=== PATIENT | male | born 1975 | race Caucasian/White ===

== ENCOUNTER 2024-04-20 09:51 | Inpatient (IN) | payer BC ==
--- NOTE | 2024-04-20 10:26 | ED ---
General Adult HPI - General Chief complaint: Upper Respiratory Infection Stated complaint: Congestion, BLAYNE, weakness Time Seen by Provider: 04/20/24 10:03 Source: patient Mode of arrival: wheelchair Limitations: no limitations - History of Present Illness Initial comments: Dictation was produced using e994 dictation software. please excuse any grammatical, word or spelling errors. Chief Complaint: 48-year-old male with cough chills and shortness of breath History of Present Illness: Patient is a 48-year-old male with history of diabetes and ITP. States that they were on a cruise. While on the cruise he thought he was coming down with sinus infection. States that shortly after he started to become more ill including short of breath with some pleuritic left anterior chest pain. Patient does report constitutional symptoms including fever chills night sweats. at the bedside states that they were just on a [employer] cruise. He did fly to [place] to get to the docking area for the cruise. Patient denies any lower extremity symptoms. Denies any history of DVT or PE The ROS documented in this emergency department record has been reviewed and confirmed by me. Those systems with pertinent positive or negative responses have been documented in the HPI. All other systems are other negative and/or noncontributory. - Related Data Allergies Allergy/AdvReac Type Severity Reaction Status Date / Time No Known Allergies Allergy Verified 04/20/24 09:58 Review of Systems ROS Statement: Those systems with pertinent positive or pertinent negative responses have been documented in the HPI. ROS Other: All systems not noted in ROS Statement are negative. Past Medical History Past Medical History: Diabetes Mellitus Additional Past Medical History / Comment(s): ITP History of Any Multi-Drug Resistant Organisms: None Reported Additional Past Surgical History / Comment(s): cyst from foot, vasectomy Past Psychological History: No Psychological Hx Reported Smoking Status: Never smoker Past Alcohol Use History: None Reported Past Drug Use History: None Reported General Exam - General Exam Comments Initial Comments: PHYSICAL EXAM: General Impression: Alert and oriented x3, not in acute distress HEENT: Normocephalic atraumatic, extra-ocular movements intact, pupils equal and reactive to light bilaterally, mucous membranes moist. Cardiovascular: Heart regular rate and rhythm Chest: Rhonchi to the left lower posterior lung mcdonough Abdomen: abdomen soft, non-tender, non-distended, no organomegaly Musculoskeletal: Pulses present and equal in all extremities, no peripheral edema Motor: no focal deficits noted Neurological: CN II-XII grossly intact, no focal motor or sensory deficits noted Skin: Intact with no visualized rashes Psych: Normal affect and mood Limitations: no limitations Course Vital Signs 04/20/24 04/20/24 04/20/24 09:53 10:30 11:00 Temperature 98.4 F Pulse Rate 112 H 105 H 104 H Respiratory 18 22 28 H Rate Blood Pressure 158/80 157/68 140/70 O2 Sat by Pulse 87 L 92 L 87 L Oximetry 04/20/24 11:30 Temperature Pulse Rate 105 H Respiratory 30 H Rate Blood Pressure 152/73 O2 Sat by Pulse 89 L Oximetry EKG Findings - EKG Comments: EKG Findings:: My EKG interpretation: Ventricular rate 111, sinus tachycardia,. 136, QRS 85, QTc 385. No HI prolongation, no QTC prolongation, no ST or T-wave changes noted. Overall, this EKG is unremarkable Medical Decision Making - Medical Decision Making Was pt. sent in by a medical professional or institution (, PA, SHEET HEATER, urgent care, hospital, or penitentiary...) When possible be specific @ -No Did you speak to anyone other than the patient for history (EMS, parent, family, police, friend...)? What history was obtained from this source @ -No Did you review nursing and triage notes (agree or disagree)? Why? @ -I reviewed and agree with nursing and triage notes Were old charts reviewed (outside hosp., previous admission, EMS record, old EKG, old radiological studies, urgent care reports/EKG's, penitentiary records)? Report findings @ -No old charts were reviewed Differential Diagnosis (chest pain, altered mental status, abdominal pain women, abdominal pain men, vaginal bleeding, musculoskeletal, weakness, fever, dyspnea, syncope, headache, dizziness, GI bleed, back pain, seizure, CVA, palpatations, mental health)? @ -Differential Dyspnea: Coronary syndrome, arrhythmia, tamponade, asthma, COPD, pulmonary embolism, pneumonia, pneumothorax, pulmonary effusion, anaphylaxis, diabetic ketoacidosis, flailed chest, pulmonary contusion, diaphragmatic rupture, anemia, neuromuscular, this is not meant to be an all-inclusive list. EKG interpreted by me (3pts min.). @ -EKG as above X-rays interpreted by me (1pt min.). @ -Chest x-ray shows pneumonia CT interpreted by me (1pt min.). @ -CT angiography of chest shows no saddle pulmonary emboli U/S interpreted by me (1pt. min.). @ -None done What testing was considered but not performed or refused? (CT, X-rays, U/S, labs)? Why? @ -None What meds were considered but not given or refused? Why? @ -None Was smoking cessation discussed for >3mins.? @ -No Were there social determinants of health that impacted care today? How? ([place] elessness, low income, unemployed, alcoholism, drug addiction, transportation, low edu. Level, literacy, decrease access to med. care, group home, rehab)? @ -No Was there de-escalation of care discussed even if they declined (Discuss DNR or withdrawal of care, Hospice)? DNR status @ -No What co-morbidities impacted this encounter? (DM, HTN, Smoking, COPD, CAD, Cancer, CVA, ARF, Chemo, Hep., AIDS, mental health diagnosis, sleep apnea, morbid obesity)? @ -None Was patient admitted / discharged? Hospital course, mention meds given and route, prescriptions, significant lab abnormalities, going to OR and other pertinent info. @ -48-year-old male with respiratory and infectious symptoms. Vital signs upon arrival shows tachycardia 112, hypoxic 87% room air. Patient placed on supplemental oxygen. Patient did have some positive lung auscultatory findings in the left posterior lung mcdonough. No leukocytosis. Coag panel is negative. D-dimer elevated 1.03. Hyponatremic 129 lactic acidosis 2.4. Influenza A positive. Patient lactic acid levels less than 4 and he is not hypotensive. Patient does not meet criteria for severe sepsis. Nonetheless he is given IV fluids antibiotics. Patient will be admitted. Case discussed with hospitalist for admission. Did you discuss the management of the patient with other professionals (professionals i.e. , PA, SHEET HEATER, lab, RT, psych nurse, social media developer, dat instructor, teacher, customer service officer, family independence case manager)? Give summary @ -See above Was critical care preformed (if so, how long)? @ -Yes, 33 minutes for hypoxia Undiagnosed new problem with uncertain prognosis? @ -No Drug Therapy requiring intensive monitoring for toxicity (Heparin, Nitro, Insulin, Cardizem)? @ -No Were any procedures done? @ -No Diagnosis/symptom? Acute, or Chronic, or Acute on Chronic? Uncomplicated (without systemic symptoms) or Complicated (systemic symptoms)? @ -Multilobar pneumonia Side effects of treatment? @ -No Exacerbation, Progression, or Severe Exacerbation? @ -No Poses a threat to life or bodily function? How? (Chest pain, [place], [place], pneumonia, PE, COPD, DKA, ARF, appy, cholecystitis, CVA, Diverticulitis, Homicidal, Suicidal, threat to staff... and all critical care pts) @ -yes - Lab Data Result diagrams: 04/20/24 10:04/20/24 10: Lab Results 04/20/24 04/20/24 04/20/24 Range/Units 10:09 10: 10: WBC 7.9 (3.8-10.6) k/uL RBC 4.79 (4.30-5.90) m/uL Hgb 14.1 (13.0-17.5) gm/dL Hct 41.9 (39.0-53.0) % MCV 87.4 (80.0-100.0) fL MCH 29.4 (25.0-35.0) pg MCHC 33.6 (31.0-37.0) g/dL RDW 12.5 (11.5-15.5) % Plt Count 162 (150-450) k/uL MPV 7.5 Neutrophils % 91 % Lymphocytes % 4 % Monocytes % 4 % Eosinophils % 0 % Basophils % 0 % Neutrophils # 7.2 (1.3-7.7) k/uL Lymphocytes # 0.3 L (1.0-4.8) k/uL Monocytes # 0.3 (0-1.0) k/uL Eosinophils # 0.0 (0-0.7) k/uL Basophils # 0.0 (0-0.2) k/uL PT 12.6 H (10.0-12.5) sec INR 1.2 H (<1.2) APTT 24.5 (22.0-30.0) sec D-Dimer 1.03 H (<0.60) mg/L FEU Sodium (137-145) mmol/L Potassium (3.5-5.1) mmol/L Chloride (98-107) mmol/L Carbon Dioxide (22-30) mmol/L Anion Gap mmol/L BUN (9-20) mg/dL Creatinine (0.66-1.25) mg/dL Est GFR (CKD-EPI)AfAm (>60 ml/min/1.73 sqM) Est GFR (CKD-EPI)NonAf (>60 ml/min/1.73 sqM) Glucose (74-99) mg/dL Plasma Lactic Acid Bertin (0.7-2.0) mmol/L Calcium (8.4-10.2) mg/dL Magnesium (1.6-2.3) mg/dL Total Bilirubin (0.2-1.3) mg/dL AST (17-59) U/L ALT (4-49) U/L Alkaline Phosphatase (38-126) U/L Troponin I (0.000-0.034) ng/mL NT-Pro-B Natriuret Pep pg/mL Total Protein (6.3-8.2) g/dL Albumin (3.5-5.0) g/dL Influenza Type A (PCR) Detected A (Not Detectd) Influenza Type B (PCR) Not Detected (Not Detectd) RSV (PCR) Not Detected (Not Detectd) SARS-CoV-2 (PCR) Not Detected (Not Detectd) 04/20/24 04/20/24 04/20/24 Range/Units 10:26 10:26 10:26 WBC (3.8-10.6) k/uL RBC (4.30-5.90) m/uL Hgb (13.0-17.5) gm/dL Hct (39.0-53.0) % MCV (80.0-100.0) fL MCH (25.0-35.0) pg MCHC (31.0-37.0) g/dL RDW (11.5-15.5) % Plt Count (150-450) k/uL MPV Neutrophils % % Lymphocytes % % Monocytes % % Eosinophils % % Basophils % % Neutrophils # (1.3-7.7) k/uL Lymphocytes # (1.0-4.8) k/uL Monocytes # (0-1.0) k/uL Eosinophils # (0-0.7) k/uL Basophils # (0-0.2) k/uL PT (10.0-12.5) sec INR (<1.2) APTT (22.0-30.0) sec D-Dimer (<0.60) mg/L FEU Sodium 129 L (137-145) mmol/L Potassium 4.1 (3.5-5.1) mmol/L Chloride 94 L (98-107) mmol/L Carbon Dioxide 25 (22-30) mmol/L Anion Gap 10 mmol/L BUN 17 (9-20) mg/dL Creatinine 0.86 (0.66-1.25) mg/dL Est GFR (CKD-EPI)AfAm >90 (>60 ml/min/1.73 sqM) Est GFR (CKD-EPI)NonAf >90 (>60 ml/min/1.73 sqM) Glucose 245 H (74-99) mg/dL Plasma Lactic Acid Bertin 2.4 H* (0.7-2.0) mmol/L Calcium 7.7 L (8.4-10.2) mg/dL Magnesium 2.0 (1.6-2.3) mg/dL Total Bilirubin 3.1 H (0.2-1.3) mg/dL AST 38 (17-59) U/L ALT 28 (4-49) U/L Alkaline Phosphatase 83 (38-126) U/L Troponin I <0.012 (0.000-0.034) ng/mL NT-Pro-B Natriuret Pep 336 pg/mL Total Protein 5.8 L (6.3-8.2) g/dL Albumin 3.2 L (3.5-5.0) g/dL Influenza Type A (PCR) (Not Detectd) Influenza Type B (PCR) (Not Detectd) RSV (PCR) (Not Detectd) SARS-CoV-2 (PCR) (Not Detectd) Disposition Clinical Impression: Pneumonia Disposition: ADMITTED IP TO THIS HOSP Condition: Serious Referrals: Nohemi Bernal DO [Primary Care Provider] - 1-2 days Decision Time: 12:46
[2024-04-20 11:04] LABS: Influenza A Detected (Not Detectd); Influenza B Not Detected (Not Detectd); RSV Not Detected (Not Detectd)
[2024-04-20 11:08] LABS: Basophils % (A) 0 %; Eosinophils % (A) 0 %; HCT 41.9 % (39.0-53.0); HGB 14.1 gm/dL (13.0-17.5); Lymphocytes # (A) 0.3 k/uL (1.0-4.8); Lymphocytes % (A) 4 %; MCH 29.4 pg (25.0-35.0); MCHC 33.6 g/dL (31.0-37.0); MCV 87.4 fL (80.0-100.0); Mean Platelet Volume 7.5; Monocytes # (A) 0.3 k/uL (0-1.0); Monocytes % (A) 4 %; Neutrophils # (A) 7.2 k/uL (1.3-7.7); Neutrophils % (A) 91 %; Platelet Count 162 k/uL (150-450); RBC 4.79 m/uL (4.30-5.90); RDW 12.5 % (11.5-15.5); WBC 7.9 k/uL (3.8-10.6)
--- NOTE | 2024-04-20 11:10 | XR ---
EXAMINATION TYPE: XR chest 2V DATE OF EXAM: 04/20/2024 10:57 AM COMPARISON: None CLINICAL INDICATION: Male, 48 years old with history of hypoxia; [facility] TECHNIQUE: XR chest 2V Frontal and lateral views of the chest. FINDINGS: Lungs/Pleura: Left lower lobe airspace opacities. There is no evidence of pleural effusion, focal con solidation, or pneumothorax. Pulmonary vascularity: Unremarkable. Heart/mediastinum: Cardiomediastinal silhouette is unremarkable. Musculoskeletal: No acute osseous pathology. IMPRESSION: Left lower lobe airspace opacities compatible with pneumonia. [facility], , 04/20/2024 11:08 AM
[2024-04-20 11:14] LABS: INR 1.2 (<1.2); Partial Thromboplastin Time 24.5 sec (22.0-30.0); Prothrombin Time 12.6 sec (10.0-12.5)
[2024-04-20 11:22] LABS: ALT 28 U/L (4-49); AST 38 U/L (17-59); African American GFR (CKD) >90 (>60 ml/min/1.73 sqM); Albumin 3.2 g/dL (3.5-5.0); Alkaline Phosphatase 83 U/L (38-126); Anion Gap 10 mmol/L; Blood Urea Nitrogen 17 mg/dL (9-20); Calcium 7.7 mg/dL (8.4-10.2); Carbon Dioxide 25 mmol/L (22-30); Chloride 94 mmol/L (98-107); Glucose 245 mg/dL (74-99); Non-African American GFR(CKD) >90 (>60 ml/min/1.73 sqM); Potassium 4.1 mmol/L (3.5-5.1); Sodium 129 mmol/L (137-145); Total Bilirubin 3.1 mg/dL (0.2-1.3); Total Protein 5.8 g/dL (6.3-8.2)
[2024-04-20 11:31] LABS: NT-Pro-B-Type Natriuretic Pept 336 pg/mL
[2024-04-20] MEDS ORDERED: PNEUMONIA PROTOCOL UTILIZED 1 EACH MISC PO PRN ×2 (12:41→13:40)
--- NOTE | 2024-04-20 12:47 | CT ---
EXAMINATION TYPE: CT angio chest DATE OF EXAM: 04/20/2024 12:34 PM COMPARISON: Chest radiograph from same day. CLINICAL INDICATION: Male, 48 years old with history of positive D-dimer; Positive D-dimer TECHNIQUE/CONTRAST: CTA scan of the thorax is performed with IV Contrast, patient injected with 100 ml mL of Isovue 370, MIP images are created and reviewed these are created on a separate workstation.. CT DLP: 413.2 mGycm, Automated exposure control for dose reduction was used. FINDINGS: Lungs/Pleura: Extensive airspace consolidation/opacities predominantly in the left lower lobe but als o involving the left upper, right lower, right upper lobes. Airway: Large airways are patent. Heart: Size within normal limits. No significant coronary artery calcifications. Vasculature: There is no evidence for a filling defect within the pulmonary vasculature to suggest ac [place] pulmonary embolism. The pulmonary artery is of normal size. Mediastinum: No gross evidence of adenopathy. Musculoskeletal: Mild disc degeneration changes are present throughout the thoracolumbar spine second meeta to osteophyte formation and facet joint arthropathy. Soft Tissues/lymph nodes: Unremarkable. Lower neck: No significant findings. Upper Abdomen: Spleen is enlarged up to 16.0 cm. IMPRESSION: 1. No evidence of pulmonary embolism. 2. Extensive Multifocal pneumonia. [facility], , 04/20/2024 12:44 PM
[2024-04-20] MEDS: cefTRIAXone IN SWFI 1,000 MG/10 ML SYRINGE IVP STA (13:04)
[2024-04-20] MEDS: AZITHROMYCIN 500 MG in SODIUM CHLORIDE 0.9% 250 ML IVPB STA (13:09)
[2024-04-20] MEDS ORDERED: MAG HYDROX/AL HYDROX/SIMETH 30 ML CUP PO PRN (13:41)
[2024-04-20] MEDS ORDERED: NALOXONE 0.4 MG/ML 1 ML VIAL IV PRN (13:41)
[2024-04-20] MEDS ORDERED: MELATONIN 3 MG TABLET PO PRN (13:41)
[2024-04-20] MEDS ORDERED: BENZOCAINE/MENTHOL LOZENG 1 EACH LOZENGE MUCOUS MEM PRN (13:41)
[2024-04-20] MEDS ORDERED: DOCUSATE 100 MG CAP PO PRN (13:41)
[2024-04-20] MEDS ORDERED: ONDANSETRON 4 MG/2 ML VIAL IVP PRN (13:41)
[2024-04-20] MEDS ORDERED: BENZONATATE 100 MG CAP PO PRN (13:43)
--- NOTE | 2024-04-20 14:01 | P.HPIM ---
History of Present Illness H&P Date: 04/20/24 History of present illness; patient is a 48-year-old gentleman with past medical history significant for diabetes who presented to the ER for cough and not feeling well for the last week. Stated that he recently came back from a [employer] cruise. While on the cruise, patient felt as if he was coming down with upper respiratory tract infection, he was complaining of nasal congestion and bodyaches. Symptoms started on April 13, initially he just felt weak and was having bodyaches. Following that patient started having shortness of breath that was progressive, patient states that he was getting short of breath on minimal exertion. Patient also having worsening lethargy and bodyaches. Paresh ochoa also was complaining of fever or chills at home. Patient stated that they came back to [place] on Saturday and following that he even felt worse. There was no complaint of orthopnea or PND. There is no complaint of nausea, vomiting abdominal pain. Because of worsening shortness of breath, patient decided to come to the ER Initial lab work done in the ER showed WBC 7.9, hemoglobin 14.1, platelet count 162, D-dimer 1.03, sodium 129, potassium 4.1, BUN 17, creatinine 0.86, lactate 2.4, Influenza A detected Influenza B not detected RSV not detected COVID-19 not detected EKG done in the ER showed heart rate of 111 , no ST segment elevation or depression seen, no T-wave inversions seen. Chest x-ray done in the ER showed left lower lobe opacities compatible with pneumonia Patient admitted to internal medicine service REVIEW OF SYSTEMS: CONSTITUTIONAL: As mentioned above HEENT: No recent visual problems or hearing problems. Denied any sore throat. CARDIOVASCULAR: As mentioned above PULMONARY: As mentioned above GASTROINTESTINAL: No diarrhea, no nausea, no vomiting, no abdominal pain. NEUROLOGICAL: No headaches, no weakness, no numbness. HEMATOLOGICAL: Denies any bleeding or petechiae. GENITOURINARY: Denies any burning micturition, frequency, or urgency. MUSCULOSKELETAL/RHEUMATOLOGICAL: Denies any joint pain, swelling, or any muscle pain. ENDOCRINE: Denies any polyuria or polydipsia. The rest of the 14-point review of systems is negative. PHYSICAL EXAMINATION: GENERAL: The patient is alert and oriented x3, toxic looking HEENT: Pupils are round and equally reacting to light. EOMI. No scleral icterus. No conjunctival pallor. Normocephalic, atraumatic. No pharyngeal erythema. No thyromegaly. CARDIOVASCULAR: S1 and S2 present. No murmurs, rubs, or gallops. PULMONARY: Chest is clear to auscultation, no wheezing or crackles. ABDOMEN: Soft, nontender, nondistended, normoactive bowel sounds. No palpable organomegaly. MUSCULOSKELETAL: No joint swelling or deformity. EXTREMITIES: No cyanosis, clubbing, or pedal edema. NEUROLOGICAL: Gross neurological examination did not reveal any focal deficits. SKIN: No rashes. Assessment and plan Sepsis acute influenza A infection Bacterial pneumonia Hyponatremia Diabetes mellitus Monitor vital signs Monitor CBC Monitor CMP Continue telemetry monitoring Ordered blood cultures Ordered sputum cultures Ordered Legionella urine antigen Start IV Rocephin Start azithromycin Ordered IV fluids Consult pulmonary Labs and medication were reviewed.. Continue same treatment. Continue with symptomatic treatment. Resume home medication. Monitor labs and vitals. DVT and GI prophylaxis. Further recommendations as per clinical course of the patient Dictation was produced using [employer] dictation software. please excuse any grammatical, word or spelling errors. Past Medical History Past Medical History: Diabetes Mellitus Additional Past Medical History / Comment(s): ITP History of Any Multi-Drug Resistant Organisms: None Reported Additional Past Surgical History / Comment(s): cyst from foot, vasectomy Past Psychological History: No Psychological Hx Reported Smoking Status: Never smoker Past Alcohol Use History: None Reported Past Drug Use History: None Reported Medications and Allergies Home Medications Medication Instructions Recorded Confirmed Type Semaglutide [Ozempic] 0.5 mg SQ TH 04/20/24 04/20/24 History Allergies Allergy/AdvReac Type Severity Reaction Status Date / Time No Known Allergies Allergy Verified 04/20/24 13:20 Physical Exam Vitals: Vital Signs Temp Pulse Resp BP Pulse Ox 04/20/24 11:30 105 H 30 H 152/73 89 L 04/20/24 11:00 104 H 28 H 140/70 87 L 04/20/24 10:30 105 H 22 157/68 92 L 04/20/24 09:53 98.4 F 112 H 18 158/80 87 L Intake and Output 04/19/24 04/20/24 04/20/24 22:59 06:59 14:59 Other: Weight 90.718 kg Results CBC & Chem 7: 04/20/24 10:26 04/20/24 10: Labs: Abnormal Lab Results - Last 24 Hours (Table) 04/20/24 04/20/24 04/20/24 Range/Units 10: 10: 10: Lymphocytes # 0.3 L (1.0-4.8) k/uL PT 12.6 H (10.0-12.5) sec INR 1.2 H (<1.2) D-Dimer 1.03 H (<0.60) mg/L FEU Sodium (137-145) mmol/L Chloride (98-107) mmol/L Glucose (74-99) mg/dL Plasma Lactic Acid Bertin (0.7-2.0) mmol/L Calcium (8.4-10.2) mg/dL Total Bilirubin (0.2-1.3) mg/dL Total Protein (6.3-8.2) g/dL Albumin (3.5-5.0) g/dL Influenza Type A (PCR) Detected A (Not Detectd) 04/20/24 04/20/24 Range/Units 10: 10: Lymphocytes # (1.0-4.8) k/uL PT (10.0-12.5) sec INR (<1.2) D-Dimer (<0.60) mg/L FEU Sodium 129 L (137-145) mmol/L Chloride 94 L (98-107) mmol/L Glucose 245 H (74-99) mg/dL Plasma Lactic Acid Bertin 2.4 H* (0.7-2.0) mmol/L Calcium 7.7 L (8.4-10.2) mg/dL Total Bilirubin 3.1 H (0.2-1.3) mg/dL Total Protein 5.8 L (6.3-8.2) g/dL Albumin 3.2 L (3.5-5.0) g/dL Influenza Type A (PCR) (Not Detectd)
[2024-04-20] MEDS: ALBUTEROL NEBULIZED 2.5 MG/3 ML INHALATION SCH (15:22)
[2024-04-20] MEDS ORDERED: VANCOMYCIN IV PER PHARMACY 1 EACH MISC MISCELLANE PRN (18:18)
[2024-04-20] MEDS: ENOXAPARIN 40 MG/0.4 ML SYRINGE SQ SCH (18:59)
[2024-04-20] MEDS: VANCOMYCIN 1,500 MG in SODIUM CHLORIDE 0.9% 500 ML 500 ML IVPB ONE (19:38)
[2024-04-20] MEDS: ACETAMINOPHEN TAB 325 MG TAB PO PRN (20:17)
[2024-04-20] MEDS: guaiFENesin 600 MG TABLET.ER PO SCH (20:18)
[2024-04-20] MEDS: methylPREDNISolone SOD SUCCI 40 MG/ML 1 ML VIAL IV SCH (20:18)
--- NOTE | 2024-04-20 23:15 | P.CNPUL ---
History of Present Illness Consult date: 04/20/24 Reason for consult: dyspnea, pneumonia History of present illness: This is a 48-year-old male patient who presented to the emergency department w ith significant respiratory distress. The patient started have a having symptoms of URI approximately 10 days ago. Over the past 4 to 5 days, the patient started having increased cough and congestion and chest tightness and wheezing and he was producing copious amount of respiratory use that was e ssentially collars. Noted the patient was on a cruise and he arrived back to [place] yesterday and due to his overall respiratory and health decompensation, he came into the emergency department today. He was on a [employer] [place]. No nausea. No vomiting. No diarrhea. No abdominal pain. No altered mental status. In the emergency department, the patient was tested positive for influenza A. Rest of the viral screen was negative. He had a white cell count of 7.9 with a hemoglobin 14.1. D-dimer was at 1.03. Platelet count was 862. Sodium is at 129, BUN 17 with a creatinine of 0.6. Lactic acid level was at 2.4. Chest x-ray showed bilateral lower lobe pneumonia with extensive airspace disease and consolidation in the left lung base. The patient also had a CAT scan of the chest that showed extensive consolidation of the lung bases bilaterally left more than right. I saw the patient in the emergency department. He was unable to fully expand his lungs. He was having frequent coughing spells. His troponins were negative. His LFTs were essentially within normal limits. Lactic acid level dropped from 2.4 down to 1.9 with fluids. He was noted to be on oxygen at 4 L and this was having a pulse ox of 86%. I increased the flow up to 5 L and he continued to be hypoxic and following that I placed the patient on Airvo and Airvo is currently running at 30 L with FiO2 of 60% with a pulse ox of of 94%. He was already started on Tamiflu. I covered the patient with a combination of antibiotics including Rocephin Zithromax and I added vancomycin due to concern of staphylococcal pneumonia postviral/influenza A infection. Started on Lovenox for DVT prophylaxis. Started on IV Solu- Medrol. Blood cultures were sent and results are still pending. proBNP level is at 336. 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 Review of Systems Constitutional: Reports fatigue, Reports weakness Eyes: denies as per HPI, denies blurred vision, denies bulging eye, denies decreased vision, denies diplopia, denies discharge, denies dry eye, denies irritation, denies itching, denies pain, denies photophobia, denies loss of peripheral vision, denies loss of vision, denies tunnel vision/blind spots Ears: deny: decreased hearing, ear discharge, earache, tinnitus Ears, nose, mouth and throat: Reports as per HPI Breasts: absent: as per HPI, gynecomastia Cardiovascular: Reports as per HPI, Reports decreased exercise tolerance, Reports dyspnea on exertion Respiratory: Reports congestion, Reports cough, Reports dyspnea, Reports excessive sputum Gastrointestinal: Reports as per HPI Genitourinary: Reports as per HPI Musculoskeletal: Reports as per HPI Musculoskeletal: absent: ankle pain, ankle stiffness, ankle swelling, as per HPI, elbow pain, elbow stiffness, elbow swelling, foot pain, foot stiffness, foot swelling, hand pain, hand stiffness, hand swelling, hip pain, hip stiffness, hip swelling, knee pain, knee stiffness, knee swelling, shoulder pain, shoulder stiffness, shoulder swelling, wrist pain, wrist stiffness, wrist swelling Integumentary: Reports as per HPI Neurological: Reports as per HPI Psychiatric: Reports as per HPI Endocrine: Reports as per HPI Hematologic/Lymphatic: Reports as per HPI Allergic/Immunologic: Reports as per HPI Past Medical History Past Medical History: Diabetes Mellitus Additional Past Medical History / Comment(s): ITP History of Any Multi-Drug Resistant Organisms: None Reported Additional Past Surgical History / Comment(s): cyst from foot, vasectomy Past Psychological History: No Psychological Hx Reported Smoking Status: Never smoker Past Alcohol Use History: None Reported Past Drug Use History: None Reported Medications and Allergies Home Medications Medication Instructions Recorded Confirmed Type Semaglutide [Ozempic] 0.5 mg SQ TH 04/20/24 04/20/24 History Allergies Allergy/AdvReac Type Severity Reaction Status Date / Time No Known Allergies Allergy Verified 04/20/24 13:20 Physical Exam Vitals: Vital Signs Temp Pulse Resp BP Pulse Ox 04/20/24 15:30 99 18 04/20/24 15:24 100 18 94 L 04/20/24 11:30 105 H 30 H 152/73 89 L 04/20/24 11:00 104 H 28 H 140/70 87 L 04/20/24 10:30 105 H 22 157/68 92 L 04/20/24 09:53 98.4 F 112 H 18 158/80 87 L Intake and Output 04/20/24 04/20/24 04/20/24 06:59 14:59 22:59 Other: Weight 90.718 kg The patient appeared well nourished and normally developed. Vital signs as documented. The patient was having shortness of breath even at rest. The patient was having frequent coughing spells specially with inspiratory efforts. Head exam is unremarkable. No scleral icterus or corneal arcus noted. Neck is without jugular venous distension, thyromegaly, or carotid bruits. Carotid upstrokes are brisk bilaterally. Lungs show diminished breath sounds bilateral lung with bibasilar crackles left more than right. Cardiac exam reveals the PMI to be normally sized and situated. Rhythm is regular. First and second heart sounds normal. No murmurs, rubs or gallops. Abdominal exam reveals normal bowel sounds, no masses, no organomegaly and no aortic enlargement. Extremities are nonedematous and both femoral and pedal pulses are normal. Examination of the skin revealed no evidence of significant rashes, suspicious appearing nevi or other concerning lesions. Neurologically, the patient is awake and alert and the patient does not have any focal neurological deficit. Cranial nerves are essentially intact. Results - Laboratory Findings CBC and BMP: 04/20/24 10:26 04/20/24 10:26 PT/INR, D-dimer PT 12.6 sec (10.0-12.5) H 04/20/24 10: INR 1.2 (<1.2) H 04/20/24 10: D-Dimer 1.03 mg/L FEU (<0.60) H 04/20/24 10:26 Abnormal lab findings: Abnormal Labs 04/20/24 04/20/24 04/20/24 10:09 10: 10:26 Lymphocytes # 0.3 L PT 12.6 H INR 1.2 H D-Dimer 1.03 H Sodium Chloride Glucose Plasma Lactic Acid Bertin Calcium Total Bilirubin Total Protein Albumin Influenza Type A (PCR) Detected A 04/20/24 04/20/24 10: 10: Lymphocytes # PT INR D-Dimer Sodium 129 L Chloride 94 L Glucose 245 H Plasma Lactic Acid Bertin 2.4 H* Calcium 7.7 L Total Bilirubin 3.1 H Total Protein 5.8 L Albumin 3.2 L Influenza Type A (PCR) - Diagnostic Findings Chest x-ray: image reviewed CT scan - chest: image reviewed Assessment and Plan Plan: Acute bilateral lower lobe pneumonia with extensive consolidation of of the left lung base. The patient tested positive for influenza A. Symptoms started on 04/13/2024. Highly likely the patient has a bacterial superinfection based on the CAT scan findings Acute hypoxic respiratory failure, currently on Airvo at 30 L with with an FiO2 of 60% Acute influenza A infection, symptoms started on 04/13/2024 and the patient was having essentially symptoms of URI. Shortness of breath secondary to above Fever secondary to above History of diabetes mellitus History of ITP, platelet counts are normal Plan Continue Airvo and titrate oxygen flow to maintain saturation above 90% Obtain sputum Gram stain and culture Check procalcitonin level continue Tamiflu Cover the patient with a combination of Rocephin and Zithromax and vancomycin IV Solu-Medrol 40 mg every 12 hours Blood cultures Lovenox for DVT prophylaxis Albuterol nebulizer treatments 4 times a day Provide incentive spirometer Repeat the chest x-ray with next 24 hours We will continue monitoring this patient's course quite closely. Monitor the blood sugar and cover the patient with insulin sign scale coverage Will follow Time with Patient: Greater than 30
[2024-04-21] MEDS: VANCOMYCIN 1,500 MG in SODIUM CHLORIDE 0.9% 500 ML 500 ML IVPB SCH (04:20)
[2024-04-21 05:47] LABS: Glucose,Whole Blood 321 mg/dL (70-110)
[2024-04-21] MEDS ORDERED: DEXTROSE 50% SYRINGE 50 ML IVP PRN ×2 (06:24)
[2024-04-21 06:58] LABS: African American GFR (CKD) >90 (>60 ml/min/1.73 sqM); Non-African American GFR(CKD) >90 (>60 ml/min/1.73 sqM)
--- NOTE | 2024-04-21 08:22 | XR ---
EXAMINATION TYPE: XR chest 1V DATE OF EXAM: 04/21/2024 5:46 AM COMPARISON: Chest radiographs from 04/20/2024 CLINICAL INDICATION: Male, 48 years old with history of pneumonia; TECHNIQUE: XR chest 1V Frontal view of the chest. FINDINGS: Lungs/Pleura: Improved aeration of left lung base on today's exam with persistent airspace opacities scattered throughout the lungs. No evidence of pneumothorax or large pleural effusion. Pulmonary vascularity: Unremarkable. Heart/mediastinum: Cardiomediastinal silhouette is unremarkable. Musculoskeletal: No acute osseous pathology. IMPRESSION: Improved aeration of the left lung base with persistent airspace opacities. [facility], , 04/21/2024 8:20 AM
[2024-04-21 08:39] LABS: Glucose,Whole Blood 312 mg/dL (70-110)
[2024-04-21] MEDS: INSULIN LISPRO (HumaLOG) 100 UNIT/ML 10 mL VL SQ SCH (08:52)
--- NOTE | 2024-04-21 13:17 | P.PN ---
Subjective Progress Note Date: 04/21/24 patient is a 48-year-old gentleman with past medical history significant for diabetes who presented to the ER for cough and not feeling well for the last week. Stated that he recently came back from a [employer] cruise. While on the cruise, patient felt as if he was coming down with upper respiratory tract infection, he was complaining of nasal congestion and bodyaches. Symptoms started on April 13, initially he just felt weak and was having bodyaches. Following that patient started having shortness of breath that was progressive, patient states that he was getting short of breath on minimal exertion. Patient also having worsening lethargy and bodyaches. Patient also was complaining of fever or chills at home. Patient stated that they came back to [place] on Saturday and following that he even felt worse. There was no complaint of orthopnea or PND. There is no complaint of nausea, vomiting abdominal pain. Because of worsening shortness of breath, patient decided to come to the ER Initial lab work done in the ER showed WBC 7.9, hemoglobin 14.1, platelet count 162, D-dimer 1.03, sodium 129, potassium 4.1, BUN 17, creatinine 0.86, lactate 2.4, Influenza A detected Influenza B not detected RSV not detected COVID-19 not detected EKG done in the ER showed heart rate of 111 , no ST segment elevation or depression seen, no T-wave inversions seen. Chest x-ray done in the ER showed left lower lobe opacities compatible with pneumonia Patient admitted to internal medicine service 04/21. Patient seen and examined . Vital signs this morning temperature 98.8, heart rate 78, respiration 18, blood pressure 119/67, currently on heated high flow with a flow rate of 30 and FiO2 50. Denies any shortness of breath at rest, but complain of getting winded on slight exertion and states his weakness has improved compared to yesterday REVIEW OF SYSTEMS: CONSTITUTIONAL: No fever, no malaise,. CARDIOVASCULAR: No chest pain, no palpitations, no syncope. PULMONARY: No shortness of breath, no cough, GASTROINTESTINAL: No diarrhea, no nausea, no vomiting, no abdominal pain. NEUROLOGICAL: No headaches, no weakness, PHYSICAL EXAMINATION: GENERAL: The patient is alert and oriented x3, not in any acute distress. Ill looking HEENT: Pupils are round and equally reacting to light. EOMI. No scleral icterus. No conjunctival pallor. Normocephalic, atraumatic. No pharyngeal erythema. No thyromegaly. CARDIOVASCULAR: S1 and S2 present. No murmurs, rubs, or gallops. PULMONARY: Coarse breath sounds bilaterally, rhonchi at the bases ABDOMEN: Soft, nontender, nondistended, normoactive bowel sounds. No palpable organomegaly. MUSCULOSKELETAL: No joint swelling or deformity. EXTREMITIES: No cyanosis, clubbing, or pedal edema. NEUROLOGICAL: Gross neurological examination did not reveal any focal deficits. SKIN: No rashes. Assessment and plan Sepsis acute influenza A infection Acute hypoxic respiratory failure Bacterial pneumonia Hyponatremia Diabetes mellitus History of ITP Monitor vital signs Monitor CBC Monitor CMP Continue telemetry monitoring Follow-up on blood cultures Follow-up on sputum cultures Continue IV Rocephin, azithromycin, vancomycin Continue breathing treatments continue IV Solu-Medrol Pulmonology following ID consulted Labs and medication were reviewed.. Continue same treatment. Continue with symptomatic treatment. Resume home medication. Monitor labs and vitals. DVT and GI prophylaxis. Further recommendations as per clinical course of the patient Dictation was produced using [employer] dictation software. please excuse any grammatical, word or spelling errors. Objective - Vital Signs Vital signs: Vital Signs Temp 98.8 F 04/21/24 01:47 Pulse 76 04/21/24 06:00 Resp 21 04/21/24 04:00 BP 111/71 04/21/24 06:00 Pulse Ox 95 04/21/24 06:00 FiO2 50 04/21/24 03:24 Intake & Output 04/20/24 04/21/24 04/21/24 18:59 06:59 18:59 Output Total 2200 Balance -2200 Weight 90.718 kg Output: Urine 2200 - Labs CBC & Chem 7: 04/20/24 10:26 04/21/24 06:10 Labs: Abnormal Lab Results - Last 24 Hours (Table) 04/20/24 04/20/24 04/20/24 Range/Units 10:09 10:26 10:26 Lymphocytes # 0.3 L (1.0-4.8) k/uL PT 12.6 H (10.0-12.5) sec INR 1.2 H (<1.2) D-Dimer 1.03 H (<0.60) mg/L FEU Sodium (137-145) mmol/L Chloride (98-107) mmol/L Glucose (74-99) mg/dL POC Glucose (mg/dL) (70-110) mg/dL Plasma Lactic Acid Bertin (0.7-2.0) mmol/L Calcium (8.4-10.2) mg/dL Total Bilirubin (0.2-1.3) mg/dL Total Protein (6.3-8.2) g/dL Albumin (3.5-5.0) g/dL Procalcitonin (0.02-0.50) ng/mL Influenza Type A (PCR) Detected A (Not Detectd) 04/20/24 04/20/24 04/20/24 Range/Units 10:26 10:26 10:26 Lymphocytes # (1.0-4.8) k/uL PT (10.0-12.5) sec INR (<1.2) D-Dimer (<0.60) mg/L FEU Sodium 129 L (137-145) mmol/L Chloride 94 L (98-107) mmol/L Glucose 245 H (74-99) mg/dL POC Glucose (mg/dL) (70-110) mg/dL Plasma Lactic Acid Bertin 2.4 H* (0.7-2.0) mmol/L Calcium 7.7 L (8.4-10.2) mg/dL Total Bilirubin 3.1 H (0.2-1.3) mg/dL Total Protein 5.8 L (6.3-8.2) g/dL Albumin 3.2 L (3.5-5.0) g/dL Procalcitonin 3.93 H (0.02-0.50) ng/mL Influenza Type A (PCR) (Not Detectd) 04/21/24 04/21/24 Range/Units 05:45 08:37 Lymphocytes # (1.0-4.8) k/uL PT (10.0-12.5) sec INR (<1.2) D-Dimer (<0.60) mg/L FEU Sodium (137-145) mmol/L Chloride (98-107) mmol/L Glucose (74-99) mg/dL POC Glucose (mg/dL) 321 H 312 H (70-110) mg/dL Plasma Lactic Acid Bertin (0.7-2.0) mmol/L Calcium (8.4-10.2) mg/dL Total Bilirubin (0.2-1.3) mg/dL Total Protein (6.3-8.2) g/dL Albumin (3.5-5.0) g/dL Procalcitonin (0.02-0.50) ng/mL Influenza Type A (PCR) (Not Detectd) Microbiology - Last 24 Hours (Table) 04/20/24 15:40 Gram Stain - Preliminary Sputum
[2024-04-21 13:23] LABS: Glucose,Whole Blood 410 mg/dL (70-110)
[2024-04-21] MEDS: AZITHROMYCIN 500 MG in SODIUM CHLORIDE 0.9% 250 ML IVPB SCH (13:32)
[2024-04-21 16:34] LABS: Glucose,Whole Blood 383 mg/dL (70-110)
--- NOTE | 2024-04-21 17:55 | P.PN ---
Subjective Progress Note Date: 04/21/24 This is a 48-year-old male patient who presented to the emergency department with significant respiratory distress. The patient started have a having symptoms of URI approximately 10 days ago. Over the past 4 to 5 days, the patient started having increased cough and congestion and chest tightness and w heezing and he was producing copious amount of respiratory use that was essentially collars. Noted the patient was on a cruise and he arrived back to [place] yesterday and due to his overall respiratory and health decompensation, he came into the emergency department today. He was on a [employer] [place]. No nausea. No vomiting. No diarrhea. No abdominal pain. No altered mental status. In the emergency department, the patient was tested positive for influenza A. Rest of the viral screen was negative. He had a white cell count of 7.9 with a hemoglobin 14.1. D-dimer was at 1.03. Platelet count was 862. Sodium is at 129, BUN 17 with a creatinine of 0.6. Lactic acid level was at 2 .4. Chest x-ray showed bilateral lower lobe pneumonia with extensive airspace disease and consolidation in the left lung base. The patient also had a CAT scan of the chest that showed extensive consolidation of the lung bases bilaterally left more than right. I saw the patient in the emergency de partment. He was unable to fully expand his lungs. He was having frequent coughing spells. His troponins were negative. His LFTs were essentially within normal limits. Lactic acid level dropped from 2.4 down to 1.9 with fluids. He was noted to be on oxygen at 4 L and this was having a pulse ox of 86%. I increased the flow up to 5 L and he continued to be hypoxic and following that I placed the patient on Airvo and Airvo is currently running at 30 L with FiO2 of 60% with a pulse ox of of 94%. He was already started on Tamiflu. I covered the patient with a combination of antibiotics including Rocephin Zithromax and I added vancomycin due to concern of staphylococcal pneumonia postviral/influenza A infection. Started on Lovenox for DVT prophylaxis. Started on IV Solu- Medrol. Blood cultures were sent and results are still pending. proBNP level is at 336. 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 On 04/21/2024, the patient is being seen for a follow-up. The patient has extensive bilateral lower lobe pneumonia along with an influenza A infection. Repeat chest x-ray was done today and showed improvement in the aeration of the left lung base and the patient continues to have persistent airspace disease. The patient remains on Airvo and this will be gradually weaned down to high flow nasal cannula. Was able to take him off the Airvo and the patient was placed on a liters of oxygen by nasal cannula with a pulse ox of 96%. Cough has subsided. He is on broad-spectrum antibiotics. He is currently on a combination of Rocephin and Zithromax and vancomycin. He remains on IV Solu-Medrol. He is on bronchodilators. The labs showed a procalcitonin level of 3.9. Blood work and electrolytes from yesterday were noted. No significant tachycardia. Currently is afebrile. No altered mentation. Objective - Vital Signs Vital signs: Vital Signs Temp 98.8 F 04/21/24 01:47 Pulse 92 04/21/24 09:47 Resp 21 04/21/24 04:00 BP 111/71 04/21/24 06:00 Pulse Ox 94 L 04/21/24 09:33 FiO2 45 04/21/24 09:33 Intake & Output 04/20/24 04/21/24 04/21/24 18:59 06:59 18:59 Output Total 2200 Balance -2200 Weight 90.718 kg Output: Urine 2200 - Exam The patient appeared well nourished and normally developed. Vital signs as docum ented. The patient is more comfortable compared to yesterday currently on 8 L of oxygen nasal cannula Head exam is unremarkable. No scleral icterus or corneal arcus noted. Neck is without jugular venous distension, thyromegaly, or carotid bruits. Carotid upstrokes are brisk bilaterally. Lungs show diminished breath sounds bilateral lung with bibasilar crackles left more than right. Cardiac exam reveals the PMI to be normally sized and situated. Rhythm is regular. First and second heart sounds normal. No murmurs, rubs or gallops. Abdominal exam reveals normal bowel sounds, no masses, no organomegaly and no aortic enlargement. Extremities are nonedematous and both femoral and pedal pulses are normal. Examination of the skin revealed no evidence of significant rashes, suspicious appearing nevi or other concerning lesions. Neurologically, the patient is awake and alert and the patient does not have any focal neurological deficit. Cranial nerves are essentially intact. - Labs CBC & Chem 7: 04/20/24 10:04/21/24 06:10 Labs: Abnormal Lab Results - Last 24 Hours (Table) 04/20/24 04/20/24 04/20/24 Range/Units 10:09 10: 10: Lymphocytes # 0.3 L (1.0-4.8) k/uL PT 12.6 H (10.0-12.5) sec INR 1.2 H (<1.2) D-Dimer 1.03 H (<0.60) mg/L FEU Sodium (137-145) mmol/L Chloride (98-107) mmol/L Glucose (74-99) mg/dL POC Glucose (mg/dL) (70-110) mg/dL Plasma Lactic Acid Bertin (0.7-2.0) mmol/L Calcium (8.4-10.2) mg/dL Total Bilirubin (0.2-1.3) mg/dL Total Protein (6.3-8.2) g/dL Albumin (3.5-5.0) g/dL Procalcitonin (0.02-0.50) ng/mL Influenza Type A (PCR) Detected A (Not Detectd) 04/20/24 04/20/24 04/20/24 Range/Units 10: 10: 10: Lymphocytes # (1.0-4.8) k/uL PT (10.0-12.5) sec INR (<1.2) D-Dimer (<0.60) mg/L FEU Sodium 129 L (137-145) mmol/L Chloride 94 L (98-107) mmol/L Glucose 245 H (74-99) mg/dL POC Glucose (mg/dL) (70-110) mg/dL Plasma Lactic Acid Bertin 2.4 H* (0.7-2.0) mmol/L Calcium 7.7 L (8.4-10.2) mg/dL Total Bilirubin 3.1 H (0.2-1.3) mg/dL Total Protein 5.8 L (6.3-8.2) g/dL Albumin 3.2 L (3.5-5.0) g/dL Procalcitonin 3.93 H (0.02-0.50) ng/mL Influenza Type A (PCR) (Not Detectd) 04/21/24 04/21/24 Range/Units 05:45 08:37 Lymphocytes # (1.0-4.8) k/uL PT (10.0-12.5) sec INR (<1.2) D-Dimer (<0.60) mg/L FEU Sodium (137-145) mmol/L Chloride (98-107) mmol/L Glucose (74-99) mg/dL POC Glucose (mg/dL) 321 H 312 H (70-110) mg/dL Plasma Lactic Acid Bertin (0.7-2.0) mmol/L Calcium (8.4-10.2) mg/dL Total Bilirubin (0.2-1.3) mg/dL Total Protein (6.3-8.2) g/dL Albumin (3.5-5.0) g/dL Procalcitonin (0.02-0.50) ng/mL Influenza Type A (PCR) (Not Detectd) Microbiology - Last 24 Hours (Table) 04/20/24 15:40 Gram Stain - Preliminary Sputum Assessment and Plan Plan: Acute bilateral lower lobe pneumonia with extensive consolidation of of the left lung base. The patient tested positive for influenza A. Symptoms started on 04/13/2024. Highly likely the patient has a bacterial superinfection based on the CAT scan findings. Procalcitonin level is elevated at 3.9 suspicious for an underlying bacterial infection. The patient is currently on a combination of Rocephin Zithromax and vancomycin. Acute hypoxic respiratory failure, currently on Airvo at 30 L with with an FiO2 of 60%, weaned down to 8 L of oxygen by nasal cannula Acute influenza A infection, symptoms started on 04/13/2024 and the patient was having essentially symptoms of URI. Shortness of breath secondary to above Fever secondary to above History of diabetes mellitus History of ITP, platelet counts are normal Plan Continue high flow oxygen 8 L Obtain sputum Gram stain and culture pending Check procalcitonin level is elevated Cover the patient with a combination of Rocephin and Zithromax and vancomycin IV Solu-Medrol 40 mg every 12 hours Blood cultures Lovenox for DVT prophylaxis Albuterol nebulizer treatments 4 times a day Provide incentive spirometer Repeat the chest x-ray shows interval improvement in aeration left lung base although the patient continues to have multifocal bilateral pulmonary infiltrates in the lung bases left more than right Monitor the blood sugar and cover the patient with insulin sign scale coverage Will follow
[2024-04-21] MEDS ORDERED: VANCOMYCIN TROUGH DUE 1 EACH MISC MISCELLANE ONE (19:00)
[2024-04-21 20:08] LABS: Glucose,Whole Blood 382 mg/dL (70-110)
--- NOTE | 2024-04-21 22:46 | P.CONS ---
History of Present Illness - Reason for Consult Consult date: 04/21/24 Pneumonia sepsis flu Requesting physician: Arsen Sanchez - Chief Complaint Shortness of breath and cough x days - History of Present Illness Patient is a 48-year-old male with a past medical history nephric and for diabetes mellitus ITP never smoker presenting to the hospital for evaluation of increasing shortness of breath and cough patient mention his symptoms started about 4 to 5 days ago when he was on a cruise started initially with a sinus infection subsequently with generalized body ache weakness started having a cough moderate intensity bring up some sputum and did have a left-sided pleuritic chest pain moderate intensity without radiation with worsening symptoms patient presented to hospital on arrival to the ER the patient was initially afebrile he did spike a temperature of 100.8 F last night patient was not tachycardic or hypotensive hypoxic currently on high flow nasal cannula oxygen patient did have white count of 7.9 creatinine 0.86 bilirubin was elevated vascular enzymes are normal procalcitonin 3.93 tested positive for influenza A COVID and RSV negative blood and sputum culture pressure currently pending patient did have a chest x-ray left lower lobe airspace opacity compatible with pneumonia also have a CT angiogram of the chest extensive multifocal pneumonia patient has been admitted to hospital infectious disease was consulted for further management of antibiotic therapy Review of Systems Positive point and negatives has been mentioned in the HPI, complete review of systems was performed and all other systems are negative Past Medical History Past Medical History: Diabetes Mellitus Additional Past Medical History / Comment(s): ITP History of Any Multi-Drug Resistant Organisms: None Reported Additional Past Surgical History / Comment(s): cyst from foot, vasectomy Past Psychological History: No Psychological Hx Reported Smoking Status: Never smoker Past Alcohol Use History: None Reported Past Drug Use History: None Reported - Past Family History Mother Family Medical History: Cancer Medications and Allergies Home Medications Medication Instructions Recorded Confirmed Type Semaglutide [Ozempic] 0.5 mg SQ TH 04/20/24 04/20/24 History Allergies Allergy/AdvReac Type Severity Reaction Status Date / Time No Known Allergies Allergy Verified 04/20/24 13:20 Physical Exam Vitals: Vital Signs Temp Pulse Resp BP Pulse Ox FiO2 04/21/24 09:47 92 04/21/24 09:33 89 94 L 45 04/21/24 06:00 76 111/71 95 04/21/24 04:00 73 21 117/76 95 04/21/24 03:24 99 50 04/21/24 02:00 76 119/67 97 04/21/24 01:47 98.8 F 78 18 119/67 97 04/21/24 00:00 75 114/72 97 04/20/24 23:43 97 55 04/20/24 23:39 85 16 114/72 97 04/20/24 22:00 86 124/73 97 04/20/24 21:08 99.8 F H 04/20/24 20:39 96 04/20/24 20:31 94 L 60 04/20/24 20:30 96 04/20/24 20:00 96 18 129/81 97 04/20/24 19:42 100.8 F H 98 18 129/81 97 04/20/24 18:49 101 H 20 139/72 96 04/20/24 18:35 94 L 60 04/20/24 18:00 102 H 26 H 145/71 92 L 04/20/24 17:00 99 22 134/85 92 L 04/20/24 16:00 102 H 25 H 125/67 94 L 04/20/24 15:30 99 18 04/20/24 15:24 100 18 94 L 04/20/24 15:00 98 20 129/76 95 04/20/24 14:00 101 H 28 H 140/77 89 L 04/20/24 13:00 99 20 144/77 94 L 04/20/24 12:00 100 20 139/71 93 L 04/20/24 11:30 105 H 30 H 152/73 89 L Intake and Output 04/20/24 04/21/24 04/21/24 22:59 06:59 14:59 Output Total 1200 1000 Balance -1200 -1000 Output: Urine 1200 1000 GENERAL DESCRIPTION: Middle-age male up in bed, no distress. No tachypnea or accessory muscle of respiration use. HEENT: Shows Pallor , no scleral icterus. Oral mucous membrane is dry. Some coating of the tongue NECK: Trachea central, no thyromegaly. LUNGS: Unlabored breathing. Coarse breath sounds bilaterally HEART: S1, S2, regular rate and rhythm. No loud murmur ABDOMEN: Soft, no tenderness , guarding or rigidity, EXTREMITIES: No edema of feet. SKIN: No rash, no masses palpable. NEUROLOGICAL: The patient is awake, alert, oriented x3, mood and affect normal. Results CBC & Chem 7: 04/20/24 10:04/21/24 06:10 Labs: Abnormal Lab Results - Last 24 Hours (Table) 04/20/24 04/20/24 04/20/24 Range/Units 10: 10: 10:26 PT 12.6 H (10.0-12.5) sec INR 1.2 H (<1.2) D-Dimer 1.03 H (<0.60) mg/L FEU Sodium 129 L (137-145) mmol/L Chloride 94 L (98-107) mmol/L Glucose 245 H (74-99) mg/dL POC Glucose (mg/dL) (70-110) mg/dL Plasma Lactic Acid Bertin 2.4 H* (0.7-2.0) mmol/L Calcium 7.7 L (8.4-10.2) mg/dL Total Bilirubin 3.1 H (0.2-1.3) mg/dL Total Protein 5.8 L (6.3-8.2) g/dL Albumin 3.2 L (3.5-5.0) g/dL Procalcitonin (0.02-0.50) ng/mL 04/20/24 04/21/24 04/21/24 Range/Units : 05:45 08:37 PT (10.0-12.5) sec INR (<1.2) D-Dimer (<0.60) mg/L FEU Sodium (137-145) mmol/L Chloride (98-107) mmol/L Glucose (74-99) mg/dL POC Glucose (mg/dL) 321 H 312 H (70-110) mg/dL Plasma Lactic Acid Bertin (0.7-2.0) mmol/L Calcium (8.4-10.2) mg/dL Total Bilirubin (0.2-1.3) mg/dL Total Protein (6.3-8.2) g/dL Albumin (3.5-5.0) g/dL Procalcitonin 3.93 H (0.02-0.50) ng/mL Microbiology - Last 24 Hours (Table) 04/20/24 15:40 Gram Stain - Preliminary Sputum Assessment and Plan (1) Pneumonia Current Visit: Yes Status: Acute Code(s): J18.9 - PNEUMONIA, UNSPECIFIED ORGANISM SNOMED Code(s): 923027482 Plan: 1patient presented to hospital with increasing shortness of breath cough with evidence of multifocal pneumonia symptom has been going on for 5 to 6 days possibly starting with influenza and now with evidence of secondary bacterial pneumonia 2-blood and sputum culture have been obtained results will be followed 3-patient will be treated with Rocephin Zithromax while waiting for the culture to finalize Question concern answered We will follow on clinical condition and cultures to further adjust medication if needed Thank you for this consultation we will follow the patient along with you Dictation was produced using [employer] dictation software. please excuse any grammatical, word or spelling errors. Time with Patient: Greater than 30
[2024-04-22 06:04] LABS: Glucose,Whole Blood 350 mg/dL (70-110)
[2024-04-22 06:48] LABS: HCT 35.1 % (39.0-53.0); HGB 11.5 gm/dL (13.0-17.5); MCH 29.1 pg (25.0-35.0); MCHC 32.7 g/dL (31.0-37.0); MCV 89.1 fL (80.0-100.0); Mean Platelet Volume 7.5; Platelet Count 239 k/uL (150-450); RBC 3.94 m/uL (4.30-5.90); RDW 12.6 % (11.5-15.5)
[2024-04-22 07:03] LABS: ALT 29 U/L (4-49); AST 33 U/L (17-59); African American GFR (CKD) >90 (>60 ml/min/1.73 sqM); Albumin 2.6 g/dL (3.5-5.0); Alkaline Phosphatase 85 U/L (38-126); Anion Gap 9 mmol/L; Blood Urea Nitrogen 25 mg/dL (9-20); Calcium 7.6 mg/dL (8.4-10.2); Carbon Dioxide 26 mmol/L (22-30); Chloride 97 mmol/L (98-107); Glucose 325 mg/dL (74-99); Non-African American GFR(CKD) >90 (>60 ml/min/1.73 sqM); Potassium 4.5 mmol/L (3.5-5.1); Sodium 132 mmol/L (137-145); Total Bilirubin 1.2 mg/dL (0.2-1.3)
[2024-04-22 11:50] LABS: Glucose,Whole Blood 356 mg/dL (70-110)
--- NOTE | 2024-04-22 12:36 | P.PN ---
Subjective Progress Note Date: 04/22/24 patient is a 48-year-old gentleman with past medical history significant for diabetes who presented to the ER for cough and not feeling well for the last week. Stated that he recently came back from a [employer] cruise. While on the cruise, patient felt as if he was coming down with upper respiratory tract infection, he was complaining of nasal congestion and bodyaches. Symptoms started on April 13, initially he just felt weak and was having bodyaches. Following that patient started having shortness of breath that was progressive, patient states that he was getting short of breath on minimal exertion. Patient also having worsening lethargy and bodyaches. Patient also was complaining of fever or chills at home. Patient stated that they came back to [place] on Saturday and following that he even felt worse. There was no complaint of orthopnea or PND. There is no complaint of nausea, vomiting abdominal pain. Because of worsening shortness of breath, patient decided to come to the ER Initial lab work done in the ER showed WBC 7.9, hemoglobin 14.1, platelet count 162, D-dimer 1.03, sodium 129, potassium 4.1, BUN 17, creatinine 0.86, lactate 2.4, Influenza A detected Influenza B not detected RSV not detected COVID-19 not detected EKG done in the ER showed heart rate of 111 , no ST segment elevation or depression seen, no T-wave inversions seen. Chest x-ray done in the ER showed left lower lobe opacities compatible with pneumonia Patient admitted to internal medicine service 04/21. Patient seen and examined . Vital signs this morning temperature 98.8, heart rate 78, respiration 18, blood pressure 119/67, currently on heated high flow with a flow rate of 30 and FiO2 50. Denies any shortness of breath at rest, but complain of getting winded on slight exertion and states his weakness has improved compared to yesterday 04/22. Patient seen and examined. Blood sugars have been elevated secondary to steroids. Patient has been switched from Airvo to oxygen via nasal cannula. Currently on 4 L REVIEW OF SYSTEMS: CONSTITUTIONAL: No fever, no malaise,. CARDIOVASCULAR: No chest pain, no palpitations, no syncope. PULMONARY: Denies shortness of breath at rest GASTROINTESTINAL: No diarrhea, no nausea, no vomiting, no abdominal pain. NEUROLOGICAL: No headaches, no weakness, PHYSICAL EXAMINATION: GENERAL: The patient is alert and oriented x3, not in any acute distress. Ill looking HEENT: Pupils are round and equally reacting to light. EOMI. No scleral icterus. No conjunctival pallor. Normocephalic, atraumatic. No pharyngeal erythema. No thyromegaly. CARDIOVASCULAR: S1 and S2 present. No murmurs, rubs, or gallops. PULMONARY: Coarse breath sounds bilaterally, rhonchi at the bases ABDOMEN: Soft, nontender, nondistended, normoactive bowel sounds. No palpable organomegaly. MUSCULOSKELETAL: No joint swelling or deformity. EXTREMITIES: No cyanosis, clubbing, or pedal edema. NEUROLOGICAL: Gross neurological examination did not reveal any focal deficits. SKIN: No rashes. Assessment and plan Sepsis acute influenza A infection Acute hypoxic respiratory failure Bacterial pneumonia Hyponatremia Diabetes mellitus History of ITP Monitor vital signs Monitor CBC Monitor CMP Continue telemetry monitoring Follow-up on blood cultures Follow-up on sputum cultures Continue IV Rocephin, azithromycin, vancomycin Continue breathing treatments continue IV Solu-Medrol Monitor blood sugar levels, continue sliding scale insulin, start Levemir 5 units twice daily Pulmonology following ID following Labs and medication were reviewed.. Continue same treatment. Continue with symptomatic treatment. Resume home medication. Monitor labs and vitals. DVT and GI prophylaxis. Further recommendations as per clinical course of the patient Dictation was produced using [email or web address] dictation software. please excuse any grammatical, word or spelling errors. Objective - Vital Signs Vital signs: Vital Signs Temp 98.1 F 04/22/24 08:00 Pulse 92 04/22/24 09:11 Resp 16 04/22/24 08:00 BP 111/68 04/22/24 08:00 Pulse Ox 95 04/22/24 09:00 FiO2 45 04/21/24 09:33 Intake & Output 04/21/24 04/22/24 04/22/24 18:59 06:59 18:59 Intake Total 540 860 Output Total 1999 Balance -1460 860 Weight 90.718 kg 94.9 kg Intake: Intake, IV Titration 500 Amount Vancomycin 1,500 mg In 500 Sodium Chloride 0.9% 500 ml 500 ml @ 167 mls/hr IVPB Q8H [facility] Rx#: [id number] Oral 540 360 Output: Urine 1999 Other: # Voids 4 2 - Labs CBC & Chem 7: 04/22/24 05:37 04/22/24 05:37 Labs: Abnormal Lab Results - Last 24 Hours (Table) 04/21/24 04/21/24 04/21/24 Range/Units 13:21 16:33 19:52 WBC (3.8-10.6) k/uL RBC (4.30-5.90) m/uL Hgb (13.0-17.5) gm/dL Hct (39.0-53.0) % Sodium (137-145) mmol/L Chloride (98-107) mmol/L BUN (9-20) mg/dL Creatinine (0.66-1.25) mg/dL Glucose (74-99) mg/dL POC Glucose (mg/dL) 410 H 383 H 382 H (70-110) mg/dL Calcium (8.4-10.2) mg/dL Total Protein (6.3-8.2) g/dL Albumin (3.5-5.0) g/dL 04/22/24 04/22/24 04/22/24 Range/Units 05:37 05:37 06:03 WBC 11.0 H (3.8-10.6) k/uL RBC 3.94 L (4.30-5.90) m/uL Hgb 11.5 L (13.0-17.5) gm/dL Hct 35.1 L (39.0-53.0) % Sodium 132 L (137-145) mmol/L Chloride 97 L (98-107) mmol/L BUN 25 H (9-20) mg/dL Creatinine 0.64 L (0.66-1.25) mg/dL Glucose 325 H (74-99) mg/dL POC Glucose (mg/dL) 350 H (70-110) mg/dL Calcium 7.6 L (8.4-10.2) mg/dL Total Protein 5.0 L (6.3-8.2) g/dL Albumin 2.6 L (3.5-5.0) g/dL Microbiology - Last 24 Hours (Table) 04/20/24 22:00 Nasal Screen MRSA/MSSA - Final Nasal Swab 04/20/24 12:46 Blood Culture - Preliminary Blood 04/20/24 15:40 Gram Stain - Preliminary Sputum Sputum Culture - Preliminary
[2024-04-22] MEDS: INSULIN GLARGINE (LANTUS) 100 UNIT/ML SYR SQ SCH (12:41)
[2024-04-22] MEDS: VANCOMYCIN TROUGH DUE 1 EACH MISC MISCELLANE ONE (12:42)
--- NOTE | 2024-04-22 14:04 | CDI ---
Documentation Clarification Form Date: 04/22/2024 From: Barbara [email or web address] Email: [email or web address] Admit Date: 04/20/2024 12:42:00 PM Patient Name: Isaias Washington Visit Number: [id number] Discharge Date: N/A ATTENTION: The Clinical Documentation Specialists (CDI) and [facility] Coding Staff appreciate your assistance in clarifying documentation. Please respond to the clarification below the line at the bottom and electronically sign. The CDI & [facility] Coding staff will review the response and follow-up if needed. Please note: Queries are made part of the Legal Health Record. If you have any questions, please contact the author of this message via ITS. Dr. Arsen Sanchez, Sepsis is documented in the H&P Report on 04/20/2024 - which may lack sufficient clinical evidence/support in the medical record. Additional clarification is requested. History/Risk Factors: 48-year-old male presented to [facility] ED for evaluation due to shortness of breath, cough, and chills. PMH: Type 2 diabetes mellitus, immune thrombocytopenic purpura Clinical Indicators: v Documentation Location: Electronic Medical Record Vital Sign Trend: Date Time Temperature HR RR BP SpO2 04/20/2024 09:53 98.4 F (Oral) 112 18 22 158/80 87% on Room Air 04/20/2024 19:42 100.8 F (Oral) 98 18 129/81 97% on High-Flow NC 04/21/2024 01:47 98.8 F (Oral) 78 18 119/67 97% on High-Flow NC 04/21/2024 16:28 97.8 F (Oral) 88 16 118/64 96% on High-Flow NC 04/22/2024 08:00 98.1 F (Oral) 90 16 111/68 95% on 4L NC Lab Results: 04/20/2024 04/22/2024 WBC Trend 7.9 11.0 Other Clinical Indicators: Blood Cultures (Collected on 04/20/2024): No growth after 24 hours Procalcitonin (04/20/2024): 3.93 H&P Report (04/20/2024): o Sepsis o Acute Influenza A infection o Bacterial pneumonia Infectious Disease Consult Note (04/21/2024): Patient presented to hospital with increasingshortness of breathcoughwith evidence of multifocalpneumoniasymptom has been going on for 5 to 6 days possiblystarting withinfluenzaand now with evidence of secondarybacterial pneumonia Treatment: Infectious Disease Consultation Vancomycin 1500mg IVPB Every 8 Hours Rocephin 2g IVPB Every 24 Hours Azithromycin 500mg IVPB Daily x 2 After work up and study, please clarify which diagnosis is most appropriate? [ x ] Sepsis has been ruled out [ ] Sepsis is a valid diagnosis as evidenced by the following (please add rationale): [ ] Other, please specify [ ] Unable to determine SIRS Criteria (2 or more of the following may indicate SIRS): Temperature < 96.8F (36C) or > 101.0F (38.3C) Heart Rate > 90 bpm Respiratory Rate > 20 breaths/min or PaCO2 < 32 mmHg White Blood Cell Count > 12,000 or < 4,000 cells/mm3 or > 10% bands MTDD
[2024-04-22 16:57] LABS: Glucose,Whole Blood 336 mg/dL (70-110)
--- NOTE | 2024-04-22 17:08 | P.PN ---
Subjective Progress Note Date: 04/22/24 This is a 48-year-old male patient who presented to the emergency department with significant respiratory distress. The patient started have a having symptoms of URI approximately 10 days ago. Over the past 4 to 5 days, the patient started having increased cough and congestion and chest tightness and w heezing and he was producing copious amount of respiratory use that was essentially collars. Noted the patient was on a cruise and he arrived back to [place] yesterday and due to his overall respiratory and health decompensation, he came into the emergency department today. He was on a [employer] cruise. No nausea. No vomiting. No diarrhea. No abdominal pain. No altered mental status. In the emergency department, the patient was tested positive for influenza A. Rest of the viral screen was negative. He had a white cell count of 7.9 with a hemoglobin 14.1. D-dimer was at 1.03. Platelet count was 862. Sodium is at 129, BUN 17 with a creatinine of 0.6. Lactic acid level was at 2 .4. Chest x-ray showed bilateral lower lobe pneumonia with extensive airspace disease and consolidation in the left lung base. The patient also had a CAT scan of the chest that showed extensive consolidation of the lung bases bilaterally left more than right. I saw the patient in the emergency de partment. He was unable to fully expand his lungs. He was having frequent coughing spells. His troponins were negative. His LFTs were essentially within normal limits. Lactic acid level dropped from 2.4 down to 1.9 with fluids. He was noted to be on oxygen at 4 L and this was having a pulse ox of 86%. I increased the flow up to 5 L and he continued to be hypoxic and following that I placed the patient on Airvo and Airvo is currently running at 30 L with FiO2 of 60% with a pulse ox of of 94%. He was already started on Tamiflu. I covered the patient with a combination of antibiotics including Rocephin Zithromax and I added vancomycin due to concern of staphylococcal pneumonia postviral/influenza A infection. Started on Lovenox for DVT prophylaxis. Started on IV Solu- Medrol. Blood cultures were sent and results are still pending. proBNP level is at 336. 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 On 04/21/2024, the patient is being seen for a follow-up. The patient has extensive bilateral lower lobe pneumonia along with an influenza A infection. Repeat chest x-ray was done today and showed improvement in the aeration of the left lung base and the patient continues to have persistent airspace disease. The patient remains on Airvo and this will be gradually weaned down to high flow nasal cannula. Was able to take him off the Airvo and the patient was placed on a liters of oxygen by nasal cannula with a pulse ox of 96%. Cough has subsided. He is on broad-spectrum antibiotics. He is currently on a combination of Rocephin and Zithromax and vancomycin. He remains on IV Solu-Medrol. He is on bronchodilators. The labs showed a procalcitonin level of 3.9. Blood work and electrolytes from yesterday were noted. No significant tachycardia. Currently is afebrile. No altered mentation. On today's evaluation of 04/22/2024, the patient is being seen for a follow-up. The patient is feeling better, less short of breath and Is also subsided. A sputum sample was obtained and the patient has no microbial growth. The white cell count 11 hemoglobin 11 and platelet count of 239. Electrolytes are all stable with a sodium level of 132, BUN 25 with a creatinine of 0.6. Blood sugars remain slightly elevated as the patient is currently on steroids. Remains on Rocephin no new complaints otherwise for now. And vancomycin. Remains on bronchodilators. Objective - Vital Signs Vital signs: Vital Signs Temp 98.1 F 04/22/24 08:00 Pulse 76 04/22/24 16:15 Resp 16 04/22/24 12:00 BP 122/57 04/22/24 12:00 Pulse Ox 98 04/22/24 12:00 FiO2 45 04/21/24 09:33 Intake & Output 04/21/24 04/22/24 04/22/24 18:59 06:59 18:59 Intake Total 540 860 Output Total 1999 Balance -1460 860 Weight 90.718 kg 94.9 kg Intake: Intake, IV Titration 500 Amount Vancomycin 1,500 mg In 500 Sodium Chloride 0.9% 500 ml 500 ml @ 167 mls/hr IVPB Q8H [facility] Rx#: [id number] Oral 540 360 Output: Urine 1999 Other: # Voids 4 2 - Exam The patient appeared well nourished and normally developed. Vital signs as documented. The patient is more comfortable compared to yesterday currently on 8 L of oxygen nasal cannula Head exam is unremarkable. No scleral icterus or corneal arcus noted. Neck is without jugular venous distension, thyromegaly, or carotid bruits. Carot id upstrokes are brisk bilaterally. Lungs show diminished breath sounds bilateral lung with bibasilar crackles left more than right. Cardiac exam reveals the PMI to be normally sized and situated. Rhythm is regular. First and second heart sounds normal. No murmurs, rubs or gallops. Abdominal exam reveals normal bowel sounds, no masses, no organomegaly and no aortic enlargement. Extremities are nonedematous and both femoral and pedal pulses are normal. Examination of the skin revealed no evidence of significant rashes, suspicious appearing nevi or other concerning lesions. Neurologically, the patient is awake and alert and the patient does not have any focal neurological deficit. Cranial nerves are essentially intact. - Labs CBC & Chem 7: 04/22/24 05:37 04/22/24 05:37 Labs: Abnormal Lab Results - Last 24 Hours (Table) 04/21/24 04/22/24 04/22/24 Range/Units 19:52 05:37 05:37 WBC (3.8-10.6) k/uL RBC (4.30-5.90) m/uL Hgb (13.0-17.5) gm/dL Hct (39.0-53.0) % Sodium 132 L (137-145) mmol/L Chloride 97 L (98-107) mmol/L BUN 25 H (9-20) mg/dL Creatinine 0.64 L (0.66-1.25) mg/dL Glucose 325 H (74-99) mg/dL POC Glucose (mg/dL) 382 H (70-110) mg/dL Hemoglobin A1c 7.0 H (<=6.0) % Calcium 7.6 L (8.4-10.2) mg/dL Total Protein 5.0 L (6.3-8.2) g/dL Albumin 2.6 L (3.5-5.0) g/dL 04/22/24 04/22/24 04/22/24 Range/Units 05:37 06:03 11:49 WBC 11.0 H (3.8-10.6) k/uL RBC 3.94 L (4.30-5.90) m/uL Hgb 11.5 L (13.0-17.5) gm/dL Hct 35.1 L (39.0-53.0) % Sodium (137-145) mmol/L Chloride (98-107) mmol/L BUN (9-20) mg/dL Creatinine (0.66-1.25) mg/dL Glucose (74-99) mg/dL POC Glucose (mg/dL) 350 H 356 H (70-110) mg/dL Hemoglobin A1c (<=6.0) % Calcium (8.4-10.2) mg/dL Total Protein (6.3-8.2) g/dL Albumin (3.5-5.0) g/dL 04/22/24 Range/Units 16:55 WBC (3.8-10.6) k/uL RBC (4.30-5.90) m/uL Hgb (13.0-17.5) gm/dL Hct (39.0-53.0) % Sodium (137-145) mmol/L Chloride (98-107) mmol/L BUN (9-20) mg/dL Creatinine (0.66-1.25) mg/dL Glucose (74-99) mg/dL POC Glucose (mg/dL) 336 H (70-110) mg/dL Hemoglobin A1c (<=6.0) % Calcium (8.4-10.2) mg/dL Total Protein (6.3-8.2) g/dL Albumin (3.5-5.0) g/dL Microbiology - Last 24 Hours (Table) 04/20/24 12:46 Blood Culture - Preliminary Blood 04/20/24 15:40 Gram Stain - Final Sputum Sputum Culture - Final 04/20/24 22:00 Nasal Screen MRSA/MSSA - Final Nasal Swab Assessment and Plan Plan: Acute bilateral lower lobe pneumonia with extensive consolidation of of the left lung base. The patient tested positive for influenza A. Symptoms started on 04/13/2024. Highly likely the patient has a bacterial superinfection based on the CAT scan findings. Procalcitonin level is elevated at 3.9 suspicious for an underlying bacterial infection. The patient is currently on a combination of Rocephin and vancomycin Acute hypoxic respiratory failure, currently on Airvo at 30 L with with an FiO2 of 60%, weaned down to 4 L of oxygen by nasal cannula Acute influenza A infection, symptoms started on 04/13/2024 and the patient was having essentially symptoms of URI. Shortness of breath secondary to above Fever secondary to above History of diabetes mellitus History of ITP, platelet counts are normal Plan Continue high flow oxygen for and oxygenation is gradually improving Obtain sputum Gram stain and culture was negative Check procalcitonin level is elevated Cover the patient with a combination of Rocephin and vancomycin IV Solu-Medrol 40 mg every 12 hours Blood cultures Lovenox for DVT prophylaxis Albuterol nebulizer treatments 4 times a day Provide incentive spirometer Repeat the chest x-ray in a.m. Monitor the blood sugar and cover the patient with insulin sign scale coverage and Lantus 5 units daily Will follow Time with Patient: Greater than 30
--- NOTE | 2024-04-22 17:16 | P.PN ---
Subjective Progress Note Date: 04/22/24 Principal diagnosis: Reason for follow-up is pneumonia Patient is a 48-year-old male with a past medical history nephric and for diabetes mellitus ITP never smoker presenting to the hospital for evaluation of increasing shortness of breath and cough been diagnosed with acute influenza A pneumonia. On today's evaluation that is 04/22/2024,the patient did have resolution of his fever and is breathing more comfortably currently on 2 L nasal oxygen left-sided chest pain and decreased intensity no nausea vomiting abdominal pain or diarrhea. Patient white count is 11,000, creatinine 0.64 blood and sputum cultures currently pending MRSA nasal screen is negative. Objective - Vital Signs Vital signs: Vital Signs Temp 98.1 F 04/22/24 08:00 Pulse 76 04/22/24 16:15 Resp 16 04/22/24 16:00 BP 125/65 04/22/24 16:00 Pulse Ox 96 04/22/24 16:00 FiO2 45 04/21/24 09:33 Intake & Output 04/21/24 04/22/24 04/22/24 18:59 06:59 18:59 Intake Total 540 860 Output Total 2000 Balance -1460 860 Weight 90.718 kg 94.9 kg Intake: Intake, IV Titration 500 Amount Vancomycin 1,500 mg In 500 Sodium Chloride 0.9% 500 ml 500 ml @ 167 mls/hr IVPB Q8H [facility] Rx#: [id number] Oral 540 360 Output: Urine 2000 Other: # Voids 4 2 - Exam GENERAL DESCRIPTION: An elderly male lying in bed in no distress RESPIRATORY SYSTEM: Unlabored breathing , coarse breath sound at the left base HEART: S1 S2 regular rate and rhythm , ABDOMEN: Soft , no tenderness EXTREMITIES: No edema feet - Labs CBC & Chem 7: 04/22/24 05:37 04/22/24 05:37 Labs: Abnormal Lab Results - Last 24 Hours (Table) 04/21/24 04/22/24 04/22/24 Range/Units 19:52 05:37 05:37 WBC (3.8-10.6) k/uL RBC (4.30-5.90) m/uL Hgb (13.0-17.5) gm/dL Hct (39.0-53.0) % Sodium 132 L (137-145) mmol/L Chloride 97 L (98-107) mmol/L BUN 25 H (9-20) mg/dL Creatinine 0.64 L (0.66-1.25) mg/dL Glucose 325 H (74-99) mg/dL POC Glucose (mg/dL) 382 H (70-110) mg/dL Hemoglobin A1c 7.0 H (<=6.0) % Calcium 7.6 L (8.4-10.2) mg/dL Total Protein 5.0 L (6.3-8.2) g/dL Albumin 2.6 L (3.5-5.0) g/dL 04/22/24 04/22/24 04/22/24 Range/Units 05:37 06:03 11:49 WBC 11.0 H (3.8-10.6) k/uL RBC 3.94 L (4.30-5.90) m/uL Hgb 11.5 L (13.0-17.5) gm/dL Hct 35.1 L (39.0-53.0) % Sodium (137-145) mmol/L Chloride (98-107) mmol/L BUN (9-20) mg/dL Creatinine (0.66-1.25) mg/dL Glucose (74-99) mg/dL POC Glucose (mg/dL) 350 H 356 H (70-110) mg/dL Hemoglobin A1c (<=6.0) % Calcium (8.4-10.2) mg/dL Total Protein (6.3-8.2) g/dL Albumin (3.5-5.0) g/dL 04/22/24 Range/Units 16:55 WBC (3.8-10.6) k/uL RBC (4.30-5.90) m/uL Hgb (13.0-17.5) gm/dL Hct (39.0-53.0) % Sodium (137-145) mmol/L Chloride (98-107) mmol/L BUN (9-20) mg/dL Creatinine (0.66-1.25) mg/dL Glucose (74-99) mg/dL POC Glucose (mg/dL) 336 H (70-110) mg/dL Hemoglobin A1c (<=6.0) % Calcium (8.4-10.2) mg/dL Total Protein (6.3-8.2) g/dL Albumin (3.5-5.0) g/dL Microbiology - Last 24 Hours (Table) 04/20/24 12:46 Blood Culture - Preliminary Blood 04/20/24 15:40 Gram Stain - Final Sputum Sputum Culture - Final 04/20/24 22:00 Nasal Screen MRSA/MSSA - Final Nasal Swab Assessment and Plan (1) Pneumonia Current Visit: Yes Status: Acute Code(s): J18.9 - PNEUMONIA, UNSPECIFIED ORGANISM SNOMED Code(s): 394058177 Plan: 1patient presented to hospital with increasing shortness of breath cough with evidence of multifocal pneumonia symptom has been going on for 5 to 6 days possibly starting with influenza and now with evidence of secondary bacterial pneumonia 2-blood and sputum culture have been obtained MRSA nasal screen has been negative which are currently pending 3-patient to continue with Rocephin vancomycin has been discontinued question concern answered Dictation was produced using [employer] dictation software. please excuse any grammatical, word or spelling errors. Time with Patient: Less than 30
[2024-04-22 20:29] LABS: Glucose,Whole Blood 335 mg/dL (70-110)
[2024-04-23 06:21] LABS: Glucose,Whole Blood 360 mg/dL (70-110)
[2024-04-23 07:33] LABS: Basophils % (A) 0 %; Eosinophils % (A) 0 %; HCT 37.3 % (39.0-53.0); HGB 12.4 gm/dL (13.0-17.5); Lymphocytes # (A) 0.5 k/uL (1.0-4.8); Lymphocytes % (A) 5 %; MCH 29.9 pg (25.0-35.0); MCHC 33.3 g/dL (31.0-37.0); MCV 89.9 fL (80.0-100.0); Monocytes # (A) 0.3 k/uL (0-1.0); Monocytes % (A) 3 %; Neutrophils % (A) 91 %; Platelet Count 278 k/uL (150-450); RBC 4.15 m/uL (4.30-5.90); RDW 12.9 % (11.5-15.5); WBC 9.9 k/uL (3.8-10.6)
[2024-04-23 07:41] LABS: ALT 57 U/L (4-49); AST 67 U/L (17-59); African American GFR (CKD) >90 (>60 ml/min/1.73 sqM); Albumin 2.9 g/dL (3.5-5.0); Alkaline Phosphatase 84 U/L (38-126); Anion Gap 9 mmol/L; Blood Urea Nitrogen 26 mg/dL (9-20); Calcium 7.9 mg/dL (8.4-10.2); Carbon Dioxide 24 mmol/L (22-30); Chloride 100 mmol/L (98-107); Glucose 346 mg/dL (74-99); Non-African American GFR(CKD) >90 (>60 ml/min/1.73 sqM); Potassium 4.9 mmol/L (3.5-5.1); Sodium 133 mmol/L (137-145); Total Bilirubin 1.3 mg/dL (0.2-1.3); Total Protein 5.6 g/dL (6.3-8.2)
--- NOTE | 2024-04-23 08:20 | XR ---
EXAMINATION TYPE: XR chest 1V DATE OF EXAM: 04/23/2024 6:48 AM COMPARISON: Chest radiographs from 04/21/2024 CLINICAL INDICATION: Male, 48 years old with history of Pneumonia follow-up; TECHNIQUE: XR chest 1V Frontal view of the chest. FINDINGS: Lungs/Pleura: There is no evidence of pleural effusion, focal consolidation, or pneumothorax. Pulmonary vascularity: Unremarkable. Heart/mediastinum: Cardiomediastinal silhouette is unremarkable. Musculoskeletal: No acute osseous pathology. IMPRESSION: No acute cardiopulmonary disease/process. [facility], , 04/23/2024 8:17 AM
[2024-04-23 11:33] LABS: Glucose,Whole Blood 233 mg/dL (70-110)
--- NOTE | 2024-04-23 13:54 | P.PN ---
Subjective Progress Note Date: 04/23/24 patient is a 48-year-old gentleman with past medical history significant for diabetes who presented to the ER for cough and not feeling well for the last week. Stated that he recently came back from [place] [employer] [place]. While on the cruise, patient felt as if he was coming down with upper respiratory tract infection, he was complaining of nasal congestion and bodyaches. Symptoms started on April 13, initially he just felt weak and was having bodyaches. Following that patient started having shortness of breath that was progressive, patient states that he was getting short of breath on minimal exertion. Patient also having worsening lethargy and bodyaches. Patient also was complaining of fever or chills at home. Patient stated that they came back to [place] on Saturday and following that he even felt worse. There was no complaint of orthopnea or PND. There is no complaint of nausea, vomiting abdominal pain. Because of worsening shortness of breath, patient decided to come to the ER Initial lab work done in the ER showed WBC 7.9, hemoglobin 14.1, platelet count 162, D-dimer 1.03, sodium 129, potassium 4.1, BUN 17, creatinine 0.86, lactate 2.4, Influenza A detected Influenza B not detected RSV not detected COVID-19 not detected EKG done in the ER showed heart rate of 111 , no ST segment elevation or depression seen, no T-wave inversions seen. Chest x-ray done in the ER showed left lower lobe opacities compatible with pneumonia Patient admitted to internal medicine service 04/21. Patient seen and examined . Vital signs this morning temperature 98.8, heart rate 78, respiration 18, blood pressure 119/67, currently on heated high flow with a flow rate of 30 and FiO2 50. Denies any shortness of breath at rest, but complain of getting winded on slight exertion and states his weakness has improved compared to yesterday 04/22. Patient seen and examined. Blood sugars have been elevated secondary to steroids. Patient has been switched from Airvo to oxygen via nasal cannula. Currently on 4 L 04/23. Patient seen and examined. Currently doing much better, only on 2 L of oxygen. Blood work done today showed WBC 9.9, hemoglobin 12.4, platelet count 278, sodium 133, potassium 4.9, BUN 26, creatinine 0.72 REVIEW OF SYSTEMS: CONSTITUTIONAL: No fever, no malaise,. CARDIOVASCULAR: No chest pain, no palpitations, no syncope. PULMONARY: Denies shortness of breath at rest GASTROINTESTINAL: No diarrhea, no nausea, no vomiting, no abdominal pain. NEUROLOGICAL: No headaches, no weakness, PHYSICAL EXAMINATION: GENERAL: The patient is alert and oriented x3, not in any acute distress. Ill looking HEENT: Pupils are round and equally reacting to light. EOMI. No scleral icterus. No conjunctival pallor. Normocephalic, atraumatic. No pharyngeal erythema. No thyromegaly. CARDIOVASCULAR: S1 and S2 present. No murmurs, rubs, or gallops. PULMONARY: Coarse breath sounds bilaterally, rhonchi at the bases ABDOMEN: Soft, nontender, nondistended, normoactive bowel sounds. No palpable organomegaly. MUSCULOSKELETAL: No joint swelling or deformity. EXTREMITIES: No cyanosis, clubbing, or pedal edema. NEUROLOGICAL: Gross neurological examination did not reveal any focal deficits. SKIN: No rashes. Assessment and plan Sepsis acute influenza A infection Acute hypoxic respiratory failure Bacterial pneumonia Hyponatremia Diabetes mellitus History of ITP Monitor vital signs Monitor CBC Monitor CMP Continue telemetry monitoring Follow-up on blood cultures Follow-up on sputum cultures Continue IV Rocephin, completed course of azithromycin, vancomycin discontinued Continue breathing treatments continue IV Solu-Medrol Monitor blood sugar levels, continue current insulin regimen Pulmonology following ID following Labs and medication were reviewed.. Continue same treatment. Continue with symptomatic treatment. Resume home medication. Monitor labs and vitals. DVT and GI prophylaxis. Further recommendations as per clinical course of the patient Dictation was produced using [employer] dictation software. please excuse any grammatical, word or spelling errors. Objective - Vital Signs Vital signs: Vital Signs Temp 97.9 F 04/23/24 08:00 Pulse 74 04/23/24 13:01 Resp 16 04/23/24 08:00 BP 128/68 04/23/24 12:00 Pulse Ox 96 04/23/24 12:00 FiO2 45 04/21/24 09:33 Intake & Output 04/22/24 04/23/24 04/23/24 18:59 06:59 18:59 Intake Total 750 50 Balance 750 50 Weight 212.1 kg Intake: Intake, IV Titration 750 50 Amount Azithromycin 500 mg In 250 Sodium Chloride 0.9% 250 ml @ 250 mls/hr IVPB DAILY@1200 [facility] Rx#: [id number] Vancomycin 1,500 mg In 500 Sodium Chloride 0.9% 500 ml 500 ml @ 167 mls/hr IVPB Q8H [facility] Rx#: [id number] cefTRIAXone 2 gm In 50 Sodium Chloride 0.9% 50 ml @ 100 mls/hr IVPB Q24HR [facility] Rx#:[id number] Other: # Voids 2 - Labs CBC & Chem 7: 04/23/24 06:41 04/23/24 06:41 Labs: Abnormal Lab Results - Last 24 Hours (Table) 04/22/24 04/22/24 04/23/24 Range/Units 16:55 20:28 06:19 RBC (4.30-5.90) m/uL Hgb (13.0-17.5) gm/dL Hct (39.0-53.0) % Neutrophils # (1.3-7.7) k/uL Lymphocytes # (1.0-4.8) k/uL Sodium (137-145) mmol/L BUN (9-20) mg/dL Glucose (74-99) mg/dL POC Glucose (mg/dL) 336 H 335 H 360 H (70-110) mg/dL Calcium (8.4-10.2) mg/dL AST (17-59) U/L ALT (4-49) U/L Total Protein (6.3-8.2) g/dL Albumin (3.5-5.0) g/dL 04/23/24 04/23/24 04/23/24 Range/Units 06:41 06:41 11:32 RBC 4.15 L (4.30-5.90) m/uL Hgb 12.4 L (13.0-17.5) gm/dL Hct 37.3 L (39.0-53.0) % Neutrophils # 9.0 H (1.3-7.7) k/uL Lymphocytes # 0.5 L (1.0-4.8) k/uL Sodium 133 L (137-145) mmol/L BUN 26 H (9-20) mg/dL Glucose 346 H (74-99) mg/dL POC Glucose (mg/dL) 233 H (70-110) mg/dL Calcium 7.9 L (8.4-10.2) mg/dL AST 67 H (17-59) U/L ALT 57 H (4-49) U/L Total Protein 5.6 L (6.3-8.2) g/dL Albumin 2.9 L (3.5-5.0) g/dL Microbiology - Last 24 Hours (Table) 04/20/24 12:46 Blood Culture - Preliminary Blood 04/20/24 15:40 Gram Stain - Final Sputum Sputum Culture - Final
--- NOTE | 2024-04-23 15:43 | P.PN ---
Subjective Progress Note Date: 04/23/24 Principal diagnosis: Reason for follow-up is pneumonia Patient is a 48-year-old male with a past medical history nephric and for diabetes mellitus ITP never smoker presenting to the hospital for evaluation of increasing shortness of breath and cough been diagnosed with acute influenza A pneumonia. On today's evaluation that is 04/23/2024,the patient remains to be afebrile, patient is on 1 L supplemental oxygen and denies any shortness of breath no chest pain cough antiplatelet intensity.Patient denies having any nausea or vomiting, no abdominal pain and no diarrhea, mention feeling better. Patient white count is 9.9 creatinine 0.72 have been negative Objective - Vital Signs Vital signs: Vital Signs Temp 97.9 F 04/23/24 08:00 Pulse 74 04/23/24 13:01 Resp 16 04/23/24 08:00 BP 128/68 04/23/24 12:00 Pulse Ox 96 04/23/24 12:00 FiO2 45 04/21/24 09:33 Intake & Output 04/22/24 04/23/24 04/23/24 18:59 06:59 18:59 Intake Total 750 50 Balance 750 50 Weight 212.1 kg Intake: Intake, IV Titration 750 50 Amount Azithromycin 500 mg In 250 Sodium Chloride 0.9% 250 ml @ 250 mls/hr IVPB DAILY@1200 [facility] Rx#: [id number] Vancomycin 1,500 mg In 500 Sodium Chloride 0.9% 500 ml 500 ml @ 167 mls/hr IVPB Q8H [facility] Rx#: [id number] cefTRIAXone 2 gm In 50 Sodium Chloride 0.9% 50 ml @ 100 mls/hr IVPB Q24HR [facility] Rx#:[id number] Other: # Voids 2 - Exam GENERAL DESCRIPTION: An elderly male lying in bed in no distress RESPIRATORY SYSTEM: Unlabored breathing , coarse breath sound at the left base HEART: S1 S2 regular rate and rhythm , ABDOMEN: Soft , no tenderness EXTREMITIES: No edema feet - Labs CBC & Chem 7: 04/23/24 06:41 04/23/24 06:41 Labs: Abnormal Lab Results - Last 24 Hours (Table) 04/22/24 04/22/24 04/23/24 Range/Units 16:55 20:28 06:19 RBC (4.30-5.90) m/uL Hgb (13.0-17.5) gm/dL Hct (39.0-53.0) % Neutrophils # (1.3-7.7) k/uL Lymphocytes # (1.0-4.8) k/uL Sodium (137-145) mmol/L BUN (9-20) mg/dL Glucose (74-99) mg/dL POC Glucose (mg/dL) 336 H 335 H 360 H (70-110) mg/dL Calcium (8.4-10.2) mg/dL AST (17-59) U/L ALT (4-49) U/L Total Protein (6.3-8.2) g/dL Albumin (3.5-5.0) g/dL 04/23/24 04/23/24 04/23/24 Range/Units 06:41 06:41 11:32 RBC 4.15 L (4.30-5.90) m/uL Hgb 12.4 L (13.0-17.5) gm/dL Hct 37.3 L (39.0-53.0) % Neutrophils # 9.0 H (1.3-7.7) k/uL Lymphocytes # 0.5 L (1.0-4.8) k/uL Sodium 133 L (137-145) mmol/L BUN 26 H (9-20) mg/dL Glucose 346 H (74-99) mg/dL POC Glucose (mg/dL) 233 H (70-110) mg/dL Calcium 7.9 L (8.4-10.2) mg/dL AST 67 H (17-59) U/L ALT 57 H (4-49) U/L Total Protein 5.6 L (6.3-8.2) g/dL Albumin 2.9 L (3.5-5.0) g/dL Microbiology - Last 24 Hours (Table) 04/20/24 12:46 Blood Culture - Preliminary Blood 04/20/24 15:40 Gram Stain - Final Sputum Sputum Culture - Final Assessment and Plan (1) Pneumonia Current Visit: Yes Status: Acute Code(s): J18.9 - PNEUMONIA, UNSPECIFIED ORGANISM SNOMED Code(s): 842113463 Plan: 1patient presented to hospital with increasing shortness of breath cough with evidence of multifocal pneumonia symptom has been going on for 5 to 6 days possibly starting with influenza and now with evidence of secondary bacterial pneumonia 2-blood and sputum culture have been negative, MRSA nasal screen has been negative 3-patient has clinical responded to Rocephin to continue to finish a 5-day course of therapy Dictation was produced using [employer] dictation software. please excuse any grammatical, word or spelling errors. Time with Patient: Less than 30
[2024-04-23 16:53] LABS: Glucose,Whole Blood 309 mg/dL (70-110)
--- NOTE | 2024-04-23 18:54 | P.PN ---
Subjective Progress Note Date: 04/23/24 This is a 48-year-old male patient who presented to the emergency department with significant respiratory distress. The patient started have a having symptoms of URI approximately 10 days ago. Over the past 4 to 5 days, the patient started having increased cough and congestion and chest tightness and w heezing and he was producing copious amount of respiratory use that was essentially collars. Noted the patient was on a cruise and he arrived back to [place] yesterday and due to his overall respiratory and health decompensation, he came into the emergency department today. He was on a [place] cruise. No nausea. No vomiting. No diarrhea. No abdominal pain. No altered mental status. In the emergency department, the patient was tested positive for influenza A. Rest of the viral screen was negative. He had a white cell count of 7.9 with a hemoglobin 14.1. D-dimer was at 1.03. Platelet count was 862. Sodium is at 129, BUN 17 with a creatinine of 0.6. Lactic acid level was at 2 .4. Chest x-ray showed bilateral lower lobe pneumonia with extensive airspace disease and consolidation in the left lung base. The patient also had a CAT scan of the chest that showed extensive consolidation of the lung bases bilaterally left more than right. I saw the patient in the emergency de partment. He was unable to fully expand his lungs. He was having frequent coughing spells. His troponins were negative. His LFTs were essentially within normal limits. Lactic acid level dropped from 2.4 down to 1.9 with fluids. He was noted to be on oxygen at 4 L and this was having a pulse ox of 86%. I increased the flow up to 5 L and he continued to be hypoxic and following that I placed the patient on Airvo and Airvo is currently running at 30 L with FiO2 of 60% with a pulse ox of of 94%. He was already started on Tamiflu. I covered the patient with a combination of antibiotics including Rocephin Zithromax and I added vancomycin due to concern of staphylococcal pneumonia postviral/influenza A infection. Started on Lovenox for DVT prophylaxis. Started on IV Solu- Medrol. Blood cultures were sent and results are still pending. proBNP level is at 336. 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 On 04/21/2024, the patient is being seen for a follow-up. The patient has extensive bilateral lower lobe pneumonia along with an influenza A infection. Repeat chest x-ray was done today and showed improvement in the aeration of the left lung base and the patient continues to have persistent airspace disease. The patient remains on Airvo and this will be gradually weaned down to high flow nasal cannula. Was able to take him off the Airvo and the patient was placed on a liters of oxygen by nasal cannula with a pulse ox of 96%. Cough has subsided. He is on broad-spectrum antibiotics. He is currently on a combination of Rocephin and Zithromax and vancomycin. He remains on IV Solu-Medrol. He is on bronchodilators. The labs showed a procalcitonin level of 3.9. Blood work and electrolytes from yesterday were noted. No significant tachycardia. Currently is afebrile. No altered mentation. On today's evaluation of 04/22/2024, the patient is being seen for a follow-up. The patient is feeling better, less short of breath and Is also subsided. A sputum sample was obtained and the patient has no microbial growth. The white cell count 11 hemoglobin 11 and platelet count of 239. Electrolytes are all stable with a sodium level of 132, BUN 25 with a creatinine of 0.6. Blood sugars remain slightly elevated as the patient is currently on steroids. Remains on Rocephin no new complaints otherwise for now. And vancomycin. Remains on bronchodilators. On today's evaluation of 04/23/2024, the patient feels less short of breath his oxygenation continues to improve and the patient is currently on 2 L of oxygen by nasal cannula with a pulse ox of 99 to 100%. Chest x-ray from today shows no significant abnormalities. The patient continues to have some diminished breath sounds left lung base. The white cell count is at 9.9 with a hemoglobin 12.4 and a platelet count of 278. Electrolytes are all within normal limits. Cultures were essentially negative. Remains on bronchodilators. Remains on steroids. Remains on Rocephin IV. He is also on Lantus 5 units twice daily and sliding scale coverage. Objective - Vital Signs Vital signs: Vital Signs Temp 98.1 F 04/22/24 20:00 Pulse 75 04/23/24 09:58 Resp 16 04/23/24 04:00 BP 117/59 04/23/24 04:00 Pulse Ox 97 04/23/24 09:41 FiO2 45 04/21/24 09:33 Intake & Output 04/22/24 04/23/24 04/23/24 18:59 06:59 18:59 Intake Total 750 Balance 750 Weight 212.1 kg Intake: Intake, IV Titration 750 Amount Azithromycin 500 mg In 250 Sodium Chloride 0.9% 250 ml @ 250 mls/hr IVPB DAILY@1200 [facility] Rx#: [id number] Vancomycin 1,500 mg In 500 Sodium Chloride 0.9% 500 ml 500 ml @ 167 mls/hr IVPB Q8H [facility] Rx#: [id number] Other: # Voids 2 - Exam The patient appeared well nourished and normally developed. Vital signs as documented. The patient is more comfortable compared to yesterday currently on 2L of oxygen nasal cannula Head exam is unremarkable. No scleral icterus or corneal arcus noted. Neck is without jugular venous distension, thyromegaly, or carotid bruits. Carotid upstrokes are brisk bilaterally. Lungs show diminished breath sounds bilateral lung with bibasilar crackles left more than right. Cardiac exam reveals the PMI to be normally sized and situated. Rhythm is regular. First and second heart sounds normal. No murmurs, rubs or gallops. Abdominal exam reveals normal bowel sounds, no masses, no organomegaly and no aortic enlargement. Extremities are nonedematous and both femoral and pedal pulses are normal. Examination of the skin revealed no evidence of significant rashes, suspicious appearing nevi or other concerning lesions. Neurologically, the patient is awake and alert and the patient does not have any focal neurological deficit. Cranial nerves are essentially intact. - Labs CBC & Chem 7: 04/23/24 06:41 04/23/24 06:41 Labs: Abnormal Lab Results - Last 24 Hours (Table) 04/22/24 04/22/24 04/22/24 Range/Units 11:49 16:55 20:28 RBC (4.30-5.90) m/uL Hgb (13.0-17.5) gm/dL Hct (39.0-53.0) % Neutrophils # (1.3-7.7) k/uL Lymphocytes # (1.0-4.8) k/uL Sodium (137-145) mmol/L BUN (9-20) mg/dL Glucose (74-99) mg/dL POC Glucose (mg/dL) 356 H 336 H 335 H (70-110) mg/dL Calcium (8.4-10.2) mg/dL AST (17-59) U/L ALT (4-49) U/L Total Protein (6.3-8.2) g/dL Albumin (3.5-5.0) g/dL 04/23/24 04/23/24 04/23/24 Range/Units 06:19 06:41 06:41 RBC 4.15 L (4.30-5.90) m/uL Hgb 12.4 L (13.0-17.5) gm/dL Hct 37.3 L (39.0-53.0) % Neutrophils # 9.0 H (1.3-7.7) k/uL Lymphocytes # 0.5 L (1.0-4.8) k/uL Sodium 133 L (137-145) mmol/L BUN 26 H (9-20) mg/dL Glucose 346 H (74-99) mg/dL POC Glucose (mg/dL) 360 H (70-110) mg/dL Calcium 7.9 L (8.4-10.2) mg/dL AST 67 H (17-59) U/L ALT 57 H (4-49) U/L Total Protein 5.6 L (6.3-8.2) g/dL Albumin 2.9 L (3.5-5.0) g/dL Microbiology - Last 24 Hours (Table) 04/20/24 12:46 Blood Culture - Preliminary Blood 04/20/24 15:40 Gram Stain - Final Sputum Sputum Culture - Final 04/20/24 22:00 Nasal Screen MRSA/MSSA - Final Nasal Swab Assessment and Plan Plan: Acute bilateral lower lobe pneumonia with extensive consolidation of of the left lung base. The patient tested positive for influenza A. Symptoms started on 04/13/2024. Highly likely the patient has a bacterial superinfection based on the CAT scan findings. Procalcitonin level is elevated at 3.9 suspicious for an underlying bacterial infection. The patient is currently on a combination of Rocephin and vancomycin has been discontinued. Oxygenation continues to improve. Less short of breath. Acute hypoxic respiratory failure, improved and the patient's FiO2 has been wean ed down to 2L of oxygen by nasal cannula Acute influenza A infection, symptoms started on 04/13/2024 and the patient was having essentially symptoms of URI. Shortness of breath secondary to above Fever secondary to above History of diabetes mellitus History of ITP, platelet counts are normal Plan Clinically improving Chest x-ray findings are stable Currently on 2 L of oxygen by nasal cannula Obtain sputum Gram stain and culture was negative Check procalcitonin level is elevated Cover the patient with IV Rocephin IV Solu-Medrol 40 mg every 12 hours and switch this patient to prednisone burst taper in the morning Blood cultures Lovenox for DVT prophylaxis Albuterol nebulizer treatments 4 times a day Provide incentive spirometer Repeat the chest x-ray in a.m. Monitor the blood sugar and cover the patient with insulin sign scale coverage and Lantus 5 units d twice daily and sliding scale coverage Will follow Time with Patient: Greater than 30
[2024-04-23 20:22] LABS: Glucose,Whole Blood 326 mg/dL (70-110)
[2024-04-23 20:48] VITALS: TEMP 98.2
[2024-04-23 23:18] VITALS: RESP 16
[2024-04-24 05:56] LABS: Glucose,Whole Blood 331 mg/dL (70-110)
[2024-04-24 07:57] VITALS: BP 146/77
--- NOTE | 2024-04-24 08:03 | XR ---
EXAMINATION TYPE: XR chest 1V DATE OF EXAM: 04/24/2024 7:21 AM COMPARISON: Chest radiograph from one day prior. CT CLINICAL INDICATION: Male, 48 years old with history of Pneumonia follow-up; [facility] TECHNIQUE: XR chest 1V Frontal view of the chest. FINDINGS: Lungs/Pleura: There is no evidence of pleural effusion, focal consolidation, or pneumothorax. Pulmonary vascularity: Unremarkable. Heart/mediastinum: Cardiomediastinal silhouette is unremarkable. Musculoskeletal: No acute osseous pathology. IMPRESSION: Stable exam with bibasilar airspace opacities better appreciated on CT. [facility], , 04/24/2024 8:00 AM
[2024-04-24 08:19] VITALS: PULSE 80
--- NOTE | 2024-04-24 09:47 | P.DS ---
Providers Date of admission: 04/20/24 12:42 Expected date of discharge: 04/24/24 Attending physician: Padma Diaz Consults: 04/20/24 12:41 Consult Physician Routine Consulting Provider: Peter Ferrer Consult Reason/Comments: pneumonia Do you want consulting provider notified?: Yes 04/21/24 09:22 Consult Physician Routine Consulting Provider: Latasha Love Consult Reason/Comments: Pneumonia, sepsis, flu Do you want consulting provider notified?: Yes Primary care physician: Nohemi Bernal Hospital Course: Discharge diagnoses; Sepsis acute influenza A infection Acute hypoxic respiratory failure Bacterial pneumonia Hyponatremia Diabetes mellitus History of ITP Hospital course; patient is a 48-year-old gentleman with past medical history significant for diabetes who presented to the ER for cough and not feeling well for the last week. Stated that he recently came back from a [employer] cruise. While on the cruise, patient felt as if he was coming down with upper respiratory tract infection, he was complaining of nasal congestion and bodyaches. Symptoms started on April 13, initially he just felt weak and was having bodyaches. Following that patient started having shortness of breath that was progressive, patient states that he was getting short of breath on minimal exertion. Patient also having worsening lethargy and bodyaches. Patient also was complaining of fever or chills at home. Patient stated that they came back to [place] on Saturday and following that he even felt worse. There was no complaint of orthopnea or PND. There is no complaint of nausea, vomiting abdominal pain. Because of worsening shortness of breath, patient decided to come to the ER Initial lab work done in the ER showed WBC 7.9, hemoglobin 14.1, platelet count 162, D-dimer 1.03, sodium 129, potassium 4.1, BUN 17, creatinine 0.86, lactate 2.4, Influenza A detected Influenza B not detected RSV not detected COVID-19 not detected EKG done in the ER showed heart rate of 111 , no ST segment elevation or depression seen, no T-wave inversions seen. Chest x-ray done in the ER showed left lower lobe opacities compatible with pneumonia Patient admitted to internal medicine service 04/21. Patient seen and examined . Vital signs this morning temperature 98.8, heart rate 78, respiration 18, blood pressure 119/67, currently on heated high flow with a flow rate of 30 and FiO2 50. Denies any shortness of breath at rest, but complain of getting winded on slight exertion and states his weakness has improved compared to yesterday 04/22. Patient seen and examined. Blood sugars have been elevated secondary to steroids. Patient has been switched from Airvo to oxygen via nasal cannula. Currently on 4 L 04/23. Patient seen and examined. Currently doing much better, only on 2 L of oxygen. Blood work done today showed WBC 9.9, hemoglobin 12.4, platelet count 278, sodium 133, potassium 4.9, BUN 26, creatinine 0.72 /14. Patient seen and examined. Patient doing much better, not requiring any oxygen. Being discharged on oral Ceftin and tapering dose of prednisone . PHYSICAL EXAMINATION: GENERAL: The patient is alert and oriented x3, not in any acute distress. Well developed, well nourished. HEENT: Pupils are round and equally reacting to light. EOMI. No scleral icterus. No conjunctival pallor. Normocephalic, atraumatic. No pharyngeal erythema. No thyromegaly. CARDIOVASCULAR: S1 and S2 present. No murmurs, rubs, or gallops. PULMONARY: Chest is clear to auscultation, no wheezing or crackles. ABDOMEN: Soft, nontender, nondistended, normoactive bowel sounds. No palpable organomegaly. MUSCULOSKELETAL: No joint swelling or deformity. EXTREMITIES: No cyanosis, clubbing, or pedal edema. NEUROLOGICAL: Gross neurological examination did not reveal any focal deficits. SKIN: No rashes. Dictation was produced using [employer] dictation software. please excuse any grammatical, word or spelling errors. Patient Condition at Discharge: Good Plan - Discharge Summary Discharge Rx Participant: No New Discharge Prescriptions: New cefuroxime axetiL [Ceftin] 500 mg PO BID 3 Days #6 tab guaiFENesin [Mucinex] 600 mg PO Q12HR 7 Days #14 tab Benzonatate [Tessalon Perles] 200 mg PO TID PRN 7 Days #21 cap PRN Reason: Cough predniSONE 10 mg PO DAILY 8 Days #20 tab Continue Semaglutide [Ozempic] 0.5 mg SQ TH Discharge Medication List Semaglutide [Ozempic] 0.5 mg SQ TH 04/20/24 [History] Benzonatate [Tessalon Perles] 200 mg PO TID PRN 7 Days #21 cap 04/24/24 [Rx] cefuroxime axetiL [Ceftin] 500 mg PO BID 3 Days #6 tab 04/24/24 [Rx] guaiFENesin [Mucinex] 600 mg PO Q12HR 7 Days #14 tab 04/24/24 [Rx] predniSONE 10 mg PO DAILY 8 Days #20 tab 04/24/24 [Rx] Follow up Appointment(s)/Referral(s): Nohemi Bernal DO [Primary Care Provider] - 1-2 days Peter Ferrer MD [STAFF PHYSICIAN] - 1 Week Discharge Disposition: HOME SELF-CARE
--- NOTE | 2024-04-24 16:58 | P.PN ---
Subjective Progress Note Date: 04/24/24 This is a 48-year-old male patient who presented to the emergency department with significant respiratory distress. The patient started have a having symptoms of URI approximately 10 days ago. Over the past 4 to 5 days, the patient started having increased cough and congestion and chest tightness and w heezing and he was producing copious amount of respiratory use that was essentially collars. Noted the patient was on a cruise and he arrived back to [place] yesterday and due to his overall respiratory and health decompensation, he came into the emergency department today. He was on a [employer] cruise. No nausea. No vomiting. No diarrhea. No abdominal pain. No altered mental status. In the emergency department, the patient was tested positive for influenza A. Rest of the viral screen was negative. He had a white cell count of 7.9 with a hemoglobin 14.1. D-dimer was at 1.03. Platelet count was 862. Sodium is at 129, BUN 17 with a creatinine of 0.6. Lactic acid level was at 2 .4. Chest x-ray showed bilateral lower lobe pneumonia with extensive airspace disease and consolidation in the left lung base. The patient also had a CAT scan of the chest that showed extensive consolidation of the lung bases bilaterally left more than right. I saw the patient in the emergency de partment. He was unable to fully expand his lungs. He was having frequent coughing spells. His troponins were negative. His LFTs were essentially within normal limits. Lactic acid level dropped from 2.4 down to 1.9 with fluids. He was noted to be on oxygen at 4 L and this was having a pulse ox of 86%. I increased the flow up to 5 L and he continued to be hypoxic and following that I placed the patient on Airvo and Airvo is currently running at 30 L with FiO2 of 60% with a pulse ox of of 94%. He was already started on Tamiflu. I covered the patient with a combination of antibiotics including Rocephin Zithromax and I added vancomycin due to concern of staphylococcal pneumonia postviral/influenza A infection. Started on Lovenox for DVT prophylaxis. Started on IV Solu- Medrol. Blood cultures were sent and results are still pending. proBNP level is at 336. 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 On 04/21/2024, the patient is being seen for a follow-up. The patient has extensive bilateral lower lobe pneumonia along with an influenza A infection. Repeat chest x-ray was done today and showed improvement in the aeration of the left lung base and the patient continues to have persistent airspace disease. The patient remains on Airvo and this will be gradually weaned down to high flow nasal cannula. Was able to take him off the Airvo and the patient was placed on a liters of oxygen by nasal cannula with a pulse ox of 96%. Cough has subsided. He is on broad-spectrum antibiotics. He is currently on a combination of Rocephin and Zithromax and vancomycin. He remains on IV Solu-Medrol. He is on bronchodilators. The labs showed a procalcitonin level of 3.9. Blood work and electrolytes from yesterday were noted. No significant tachycardia. Currently is afebrile. No altered mentation. On today's evaluation of 04/22/2024, the patient is being seen for a follow-up. The patient is feeling better, less short of breath and Is also subsided. A sputum sample was obtained and the patient has no microbial growth. The white cell count 11 hemoglobin 11 and platelet count of 239. Electrolytes are all stable with a sodium level of 132, BUN 25 with a creatinine of 0.6. Blood sugars remain slightly elevated as the patient is currently on steroids. Remains on Rocephin no new complaints otherwise for now. And vancomycin. Remains on bronchodilators. On today's evaluation of 04/23/2024, the patient feels less short of breath his oxygenation continues to improve and the patient is currently on 2 L of oxygen by nasal cannula with a pulse ox of 99 to 100%. Chest x-ray from today shows no significant abnormalities. The patient continues to have some diminished breath sounds left lung base. The white cell count is at 9.9 with a hemoglobin 12.4 and a platelet count of 278. Electrolytes are all within normal limits. Cultures were essentially negative. Remains on bronchodilators. Remains on steroids. Remains on Rocephin IV. He is also on Lantus 5 units twice daily and sliding scale coverage. On today's evaluation of 04/24/2024, the patient is doing well. The patient has no specific complaints. Not requiring oxygen in the morning the patient is going to be discharged home on Ceftin and prednisone burst taper. His room air pulse ox is 98%. Limited cough. No significant sputum production. No new labs are available from today. As noted, cultures came back all negative. Objective - Vital Signs Vital signs: Vital Signs Temp 98.2 F 04/23/24 20:00 Pulse 80 04/24/24 08:17 Resp 16 04/24/24 08:00 BP 146/77 04/24/24 07:56 Pulse Ox 98 04/24/24 08:00 FiO2 21 04/24/24 08:00 Intake & Output 04/23/24 04/24/24 04/24/24 18:59 06:59 18:59 Intake Total 290 540 Balance 290 540 Weight 96.4 kg Intake: Intake, IV Titration 50 Amount cefTRIAXone 2 gm In 50 Sodium Chloride 0.9% 50 ml @ 100 mls/hr IVPB Q24HR [facility] Rx#:[id number] Oral 240 540 Other: Voiding Method Toilet # Voids 2 - Exam The patient appeared well nourished and normally developed. Vital signs as documented. The patient is more comfortable compared to yesterday currently on room air oxygen Head exam is unremarkable. No scleral icterus or corneal arcus noted. Neck is without jugular venous distension, thyromegaly, or carotid bruits. Carotid upstrokes are brisk bilaterally. Lungs show diminished breath sounds bilateral lung with bibasilar crackles left more than right. Cardiac exam reveals the PMI to be normally sized and situated. Rhythm is regular. First and second heart sounds normal. No murmurs, rubs or gallops. Abdominal exam reveals normal bowel sounds, no masses, no organomegaly and no aortic enlargement. Extremities are nonedematous and both femoral and pedal pulses are normal. Examination of the skin revealed no evidence of significant rashes, suspicious appearing nevi or other concerning lesions. Neurologically, the patient is awake and alert and the patient does not have any focal neurological deficit. Cranial nerves are essentially intact. - Labs CBC & Chem 7: 04/23/24 06:41 04/23/24 06:41 Labs: Abnormal Lab Results - Last 24 Hours (Table) 04/23/24 04/24/24 Range/Units 20:21 05:54 POC Glucose (mg/dL) 326 H 331 H (70-110) mg/dL Microbiology - Last 24 Hours (Table) 04/20/24 12:46 Blood Culture - Preliminary Blood Assessment and Plan Plan: Acute bilateral lower lobe pneumonia with extensive consolidation of of the left lung base. The patient tested positive for influenza A. Symptoms started on 04/13/2024. Highly likely the patient has a bacterial superinfection based on the CAT scan findings. Procalcitonin level is elevated at 3.9 suspicious for an underlying bacterial infection. The patient is currently on a combination of Rocephin and vancomycin has been discontinued. Oxygenation continues to improve Acute hypoxic respiratory failure, recovered Acute influenza A infection, symptoms started on 04/13/2024 and the patient was having essentially symptoms of URI. Shortness of breath secondary to above Fever secondary to above History of diabetes mellitus History of ITP, platelet counts are normal Plan Clinically improving Chest x-ray findings are stable Oxygenation improved Obtain sputum Gram stain and culture was negative The patient to be discharged home on a course of Ceftin and prednisone burst taper to be followed up on outpatient basis within the next 7 to 10 days.
== END 2024-04-24 10:42 | disposition home or self-care (01) | DRG 193 ==
LOC: EC 09:51 → 3SCARD 12:42
PROVIDERS: ADMIT Hospitalist; ATTEND Hospitalist
DX: J10.08 Influenza due to other identified influenza virus with other specified pneumonia (principal); J96.01 Acute respiratory failure with hypoxia; D69.3 Immune thrombocytopenic purpura; E87.1 Hypo-osmolality and hyponatremia; E11.9 Type 2 diabetes mellitus without complications; Z11.52 Encounter for screening for COVID-19; Z79.4 Long term (current) use of insulin; J15.9 Unspecified bacterial pneumonia; T38.0X5A Adverse effect of glucocorticoids and synthetic analogues, initial encounter; X58.XXXA Exposure to other specified factors, initial encounter; Z86.2 Personal history of diseases of the blood and blood-forming organs and certain disorders involving the immune mechanism
CPT/HCPCS: 36415; 71045; 71046; 71275; 80053; 80202; 82565; 83036; 83605; 83735; 83880; 84145; 84484; 85025; 85027; 85379; 85610; 85730; 87040; 87070; 87205; 87449; 87636; 93005; 94640; 94760; 96365; 96366; 96367; 96372; 96375; 96376; 99291

== ENCOUNTER → 2024-05-25 | Outpatient (CLI) | payer BC ==
--- NOTE | 2024-05-25 15:36 | XR ---
EXAMINATION TYPE: XR chest 2V DATE OF EXAM: 05/25/2024 3:23 PM COMPARISON: Chest radiographs from 04/24/2024, CTA chest 04/20/2024 TECHNIQUE: XR chest 2V Frontal and lateral views of the chest. CLINICAL INDICATION:Male, 48 years old with history of J18.9 PNEUMONIA, UNSPECIFIED ORGANISM; FINDINGS: Lungs/Pleura: No pleural effusion pneumothorax. Improving bibasilar airspace opacities from prior rad iograph. Pulmonary vascularity: Unremarkable. Heart/mediastinum: Cardiomediastinal silhouette is unremarkable. Atherosclerotic calcifications are seen in the aorta. Musculoskeletal: No acute osseous pathology. IMPRESSION: Improving bibasilar airspace opacities from prior radiograph. [facility], , 05/25/2024 3:34 PM
== END | disposition home or self-care (01) ==
LOC: RADXRMAIN 15:13
PROVIDERS: ATTEND Family Medicine
DX: J18.9 Pneumonia, unspecified organism (principal); R91.8 Other nonspecific abnormal finding of lung field
CPT/HCPCS: 71046

== ENCOUNTER → 2024-06-30 | Outpatient (CLI) | payer BC ==
--- NOTE | 2024-07-01 06:55 | XR ---
EXAMINATION TYPE: XR chest 2V DATE OF EXAM: 06/30/2024 CLINICAL INDICATION: Male, 48 years old with history of J18.9 PNEUMONIA, TECHNIQUE: Frontal and lateral views of the chest are obtained. COMPARISON: Chest x-ray May 25, 2024 FINDINGS: There is no focal air space opacity, pleural effusion, or pneumothorax seen currently. Th e cardiac silhouette size is stable and within normal limits. The osseous structures are intact. IMPRESSION: No acute pulmonary process currently. [facility], , 07/01/2024 6:53 AM
== END | disposition home or self-care (01) ==
LOC: RADXRMAIN 16:33
PROVIDERS: ATTEND Nurse Practitioner Family
DX: J18.9 Pneumonia, unspecified organism (principal)
CPT/HCPCS: 71046